=== PATIENT | female | born 1990 | race Caucasian/White ===

== ENCOUNTER 2019-09-06 16:48 | Emergency (ER) | payer OTHER, SELFPAY ==
[2019-09-06 16:56] VITALS: BP 130/77; PULSE 89; RESP 20; TEMP 37.7; O2SAT 98
--- NOTE | 2019-09-06 17:02 | ED.GENADULT ---
HPI - General Adult General Chief complaint: Eye Problems Stated complaint: Possible Cut Right eye Time Seen by Provider: 09/06/19 17:06 Source: patient and RN notes reviewed Mode of arrival: ambulatory Limitations: no limitations History of Present Illness HPI narrative: This patient's puppy accidentally scratched her in the eye with its paw about 30 minutes prior to coming to the clinic this afternoon. Patient does not wear contact lenses or glasses. She has had tearing from the eye but no purulent drainage. There is been no bleeding. She has no underlying history of eye disease. She has not had any ear pain, no nasal drainage, no sore throat. She had no injury to her left eye. She has had no nausea, no vomiting, no diarrhea. She has had no hematuria, no dysuria, no pyuria. She had no rashes. Related Data Home Medications Medication Instructions Recorded Confirmed etonogestrel [Nexplanon] 1 implant SUBDERMAL ONCE 09/06/19 09/06/19 Allergies Allergy/AdvReac Type Severity Reaction Status Date / Time latex Allergy Unknown Hives Verified 09/06/19 17:08 ATOMOXETINE HCL Allergy Unknown Other Uncoded 09/06/19 17:08 Review of Systems Review of Systems: Narrative: CONSTITUTIONAL: Denies fever, chills, or sweats. Noncontributory except as pertains to the past medical history and history of present illness. EYES: Denies visual changes, redness, or discharge. ENT: Denies rhinorrhea, congestion, sore throat, or otalgia. CARDIOVASCULAR: Denies chest pain, palpitations, or edema. RESPIRATORY: Denies cough or dyspnea. GASTROINTESTINAL: Denies abdominal pain, nausea, vomiting, or diarrhea. GENITOURINARY: Denies dysuria or hematuria. SKIN: Denies rash or itching. MUSCULOSKELETAL: Denies back pain, joint pain, or myalgia. NEUROLOGIC: Denies headache, numbness, or weakness. PSYCHIATRIC: Denies anxiety or depression. [facility] Social History Social History Smoking status: Never smoker Alcohol intake: never Substance use: never Gender identity (if verbalized by the patient): Female Comments At time of signature, I have reviewed and agree with nursing past medical, surgical, social, and family history.Please see nursing chart for further information. There is no relevant family history pertinent to the presenting complaint. Exam Narrative: Exam Narrative: GENERAL: Well-appearing, well-nourished, and in no acute distress. HEAD: Normocephalic, atraumatic. EYES: PERRLA and EOMI.The fundi are within normal limits bilaterally. Exam chart could not be read with the right eye due to the fact that she was in pain and could not keep the eye open to read the chart. The left eye visual acuity was 20/50 left eye without any form of corrective eye lenses. After explaining the procedure to the patient 2 drops of tetracaine were instilled in the patient's right eye with relief of the pain. Then magnifying lens exam with eversion of the eyelids revealed no evidence of any foreign bodies. Fluorescein staining did show a corneal abrasion pinpoint at the 10 o'clock position of the periphery of the cornea of the right cornea. There were no other lesions seen. The eyelids appear normal. There is no bruising. No swelling. There is no evidence of any erythema or cellulitis of the eyelids. No orbital or periorbital cellulitis no styes. The left eye and eyelids are normal by comparison. EARS: TM's clear bilaterally and the canals are clear. NOSE: Nares clear, no rhinorrhea or epistaxis. THROAT:Mucous membranes moist.Oropharynx normal without erythema or exudates. NECK: Supple. No adenopathy of the neck, supraclavicular, axillary, or inguinal areas peer RESPIRATORY: No respiratory distress. Airway patent. Respirations non-labored. Clear to auscultation. There are no wheezes, no rales, no retractions, no use accessory muscle respirations. Patient's not cyanotic and not dyspneic. Her pulse ox on ro
== END 2019-09-06 17:20 | disposition home or self-care (01) ==
PROVIDERS: Emergency Provider Family Medicine
DX: S05.01XA Injury of conjunctiva and corneal abrasion without foreign body, right eye, initial encounter (principal); W54.1XXA Struck by dog, initial encounter
CPT/HCPCS: 99213; A9270; G0463

== ENCOUNTER 2019-11-02 12:49 | Emergency (ER) | payer OTHER, SELFPAY ==
--- NOTE | 2019-11-02 12:57 | ED.FEMALEGU ---
HPI - Female Genitourinary General Chief complaint: Urogenital-Female Stated complaint: Possible Kidney Stone Time Seen by Provider: 11/02/19 13:12 Source: patient and RN notes reviewed Mode of arrival: ambulatory Limitations: no limitations History of Present Illness HPI Narrative: 29-year-old female presents with concern for dysuria, flank pain, urine hesitancy. Reports symptoms started approximately 2 days ago, worsened last night. She denies fever, malaise, nausea, vomiting, hematuria. Reports she is on Nexplanon and has no menstrual period. Reports flank pain worsens with urination MD elicited complaint: dysuria and flank pain Related Data Home Medications Medication Instructions Recorded Confirmed etonogestrel [Nexplanon] 1 implant SUBDERMAL ONCE 09/06/19 11/02/19 phenytoin sodium extended 100 mg PO TID 11/02/19 11/02/19 [Dilantin Extended] Allergies Allergy/AdvReac Type Severity Reaction Status Date / Time latex Allergy Unknown Hives Verified 11/02/19 12:58 atomoxetine [From Strattera] Allergy Unknown Verified 11/02/19 13:08 ATOMOXETINE HCL Allergy Unknown Other Uncoded 11/02/19 12:58 Review of Systems Review of Systems: Narrative: CONSTITUTIONAL: Denies malaise, chills, sweats, or fever. CARDIOVASCULAR: Denies edema. RESPIRATORY: Denies dyspnea. GASTROINTESTINAL: Denies abdominal pain, nausea, vomiting, diarrhea, bloody, or mucous stools. GENITOURINARY: Reports dysuria, flank pain, hesitancy. Denies frequency, urgency, hematuria. Denies abnormal vaginal discharge, bleeding. Denies unprotected sex MUSCULOSKELETAL: Denies myalgia. All systems reviewed & are unremarkable except as noted in HPI and below PMFSH Social History Social History Smoking status: Never smoker Alcohol intake: never Substance use: never Gender identity (if verbalized by the patient): Female Comments At time of signature, agree with nursing past medical, surgical, social and family history. There is no relevant family history pertinent to the presenting complaint Exam Narrative: Exam Narrative: GENERAL: Well-appearing, well-nourished, and in no acute distress. HEAD: Normocephalic. EYES: PERRLA, conjunctivae clear. NECK: Supple. No lymphadenopathy CHEST: Clear to auscultation. No respiratory distress. HEART: Regular rate and rhythm. No murmur heard. Normal peripheral pulses. ABDOMEN: Soft, nontender upon palpation, nondistended, normal active bowel sounds, no palpable or pulsatile masses, no guarding. Right CVA tenderness SKIN: Warm, dry, no rash. NEURO: Alert and oriented x3. PSYCH: Normal mood and affect Course Course Emergency Course: Patient is aware of diagnosis, understands and agrees to treatment plan. Anticipatory guidance given. Patient agrees to follow-up as directed and is aware of reasons to seek care at the emergency department. Portions of this record may have been created with voice recognition software Vital Signs Vital signs: Vital Signs Temperature 98.7 F 11/02/19 13:04 Pulse Rate 80 11/02/19 13:04 Respiratory Rate 16 11/02/19 13:04 Blood Pressure 126/72 11/02/19 13:04 Pulse Oximetry 100 11/02/19 13:04 Temperature 98.7 F 11/02/19 13:04 Pulse Rate 80 11/02/19 13:04 Respiratory Rate 16 11/02/19 13:04 Blood Pressure 126/72 11/02/19 13:04 Pulse Oximetry 100 11/02/19 13:04 Reviewed. MDM - Female Genitourinary MDM Narrative Medical decision making narrative: Exam findings and UA show no acute concerns or changes; patient is non-toxic appearing and is in no distress. Patient is appropriate for outpatient treatment and follow-up. Differential Diagnosis Differential diagnosis: Likely urinary tract infection, cystitis and other (Nephrolithiasis, pyelonephritis) Lab Data Labs: Urine Glucose Negative Reference Range: Negative Urine Bilirubin Negative Reference R
[2019-11-02 13:04] VITALS: BP 126/72; PULSE 80; RESP 16; TEMP 37.1; O2SAT 100
== END 2019-11-02 13:15 | disposition home or self-care (01) ==
PROVIDERS: Emergency Provider Nurse Practitioner
DX: R30.0 Dysuria (principal); R39.11 Hesitancy of micturition; R10.9 Unspecified abdominal pain; G40.909 Epilepsy, unspecified, not intractable, without status epilepticus
CPT/HCPCS: 81003; 87086; 99213; G0463

== ENCOUNTER 2020-01-10 11:51 | Emergency (ER) | payer OTHER, SELFPAY ==
--- NOTE | ~2020-01-10 | XR_ITS ---
XR hand LT min 3V DATE: 01/10/2020 12:46 INDICATION: Left thumb pain after a fall yesterday, bending back TECHNIQUE: 3 views COMPARISON: None FINDINGS: No fracture or dislocation, periosteal reaction or bone destruction. IMPRESSION: Negative Reviewed, dictated and finalized at location A. IMPRESSION: Negative
[2020-01-10 12:16] VITALS: BP 114/89; PULSE 86; RESP 20; TEMP 37.1; O2SAT 100
--- NOTE | 2020-01-10 12:58 | ED.GENADULT ---
HPI - General Adult General Chief complaint: Extremity Injury, Upper Stated complaint: left thumb fracture Time Seen by Provider: 01/10/20 12:58 Source: patient and RN notes reviewed Mode of arrival: ambulatory Limitations: no limitations History of Present Illness HPI narrative: 29-year-old female presents with complaints of LT 1st finger (thumb) and hand pain and swelling for 1 day. Aleve with little relief. Irina says she was getting out of her car last night at approximately 22:00 when she fell and extended her hand causing injury to LT thumb, bent backwards. Denies numbness or tingling. No weakness of finger(s). Denies immobility. Exacerbation is movement and palpation of finger. Relieving factor is rest. Dominant hand is RIGHT HAND. Denies break in skin or drainage. LMP, unknown due to Nexplanon in place. The patient reports she have not been diagnosed with COVID-19. The patient reports she is not waiting for the results of a COVID-19 lab test. The patient reports she do not have fever, chills, weakness, fatigue, myalgia, or facial swelling. The patient reports she do not have a new or worsening cough or shortness of breath. Denies chest pain. The patient reports she do not have any rhinorrhea, congestion, sore throat, nausea, vomiting, abdominal pain, and diarrhea. Tolerating po intake well. Denies recent traveling. Denies concerns for COVID-19 or exposures been home since [id number] order except for essential household needs, working, and return home. At this time, patient is not suspected of having COVID-19. Some parts of this dictation were generated by voice recognition software and may contain typographical and/or grammatical inaccuracies. Related Data Home Medications Medication Instructions Recorded Confirmed etonogestrel [Nexplanon] 1 implant SUBDERMAL ONCE 09/06/19 01/10/20 phenytoin sodium extended 100 mg PO TID 11/02/19 01/10/20 [Dilantin Extended] Allergies Allergy/AdvReac Type Severity Reaction Status Date / Time latex Allergy Unknown Hives Verified 11/02/19 12:58 atomoxetine [From Strattera] Allergy Unknown Verified 11/02/19 13:08 ATOMOXETINE HCL Allergy Unknown Other Uncoded 11/02/19 12:58 Review of Systems Review of Systems: Narrative: CONSTITUTIONAL: Denies fever, chills, sweats. EYES: Denies visual changes, redness, discharge. ENT: Denies rhinorrhea, congestion, sore throat, otalgia. CARDIOVASCULAR: Denies chest pain, palpitations, edema. RESPIRATORY: Denies dyspnea, wheezing, cough. GASTROINTESTINAL: Denies abdominal pain, nausea, vomiting, diarrhea. GENITOURINARY: Denies dysuria, hematuria, abnormal discharge. SKIN: Denies rash or itching. MUSCULOSKELETAL: Denies acute back pain or myalgia. Complains of LT 1st (thumb) finger and hand with swelling and tenderness. NEUROLOGIC: Denies numbness or focal weakness. PSYCHIATRIC: Denies anxiety or depression. All systems reviewed & are unremarkable except as noted in HPI and below. [facility] Past Medical History Medical History Crohn's disease Depression Epilepsy Migraine Surgical History Surgical History History of strabismus surgery Hx of cholecystectomy Myringotomy tube(s) status Family History Family History (Updated 01/10/20 @ 13:07 by BRENDA Head) Father Unknown family medical history Mother Alive and well Grandparent Diabetes mellitus Grandparent Cancer Social History Social History Smoking status: Never smoker Tobacco type: cigarettes Second hand tobacco smoke exposure: No Alcohol intake: never Substance use: never Gender identity (if verbalized by the patient): Female Comments At time of signature, agree with nurse past medical, surgical, social, and family history. There is no relevant family h
== END 2020-01-10 13:13 | disposition home or self-care (01) ==
PROVIDERS: Emergency Provider Nurse Practitioner Family; PCP Family Medicine Sports Medicine
DX: S63.602A Unspecified sprain of left thumb, initial encounter (principal); K50.90 Crohn's disease, unspecified, without complications; G40.909 Epilepsy, unspecified, not intractable, without status epilepticus; X58.XXXA Exposure to other specified factors, initial encounter
CPT/HCPCS: 73130; 99213; G0463

== ENCOUNTER 2020-01-13 21:22 | Emergency (ER) | payer OTHER, SELFPAY ==
[2020-01-13 21:27] VITALS: BP 120/81; PULSE 82; RESP 18; TEMP 37.6; O2SAT 100
--- NOTE | 2020-01-13 21:38 | ED.SKABFB ---
HPI - Skin/Abscess/Foreign Bdy General Chief complaint: Skin/Abscess/Foreign Body Stated complaint: cellulitis on BLE. Time Seen by Provider: 01/13/20 21:29 History of Present Illness HPI narrative: Patient presents with her partner for ongoing foot rash. She has been seen several times for this at different places. She has been given triamcinolone at 2 different places. She has not seen a peer educator. She has [place] Medicaid and a primary care physician in [facility]. She says the pain is 10 out of 10. She changed her shoes to crocs because she thought it was her previous shoe that was causing the problem. She has diabetes and her last hemoglobin A1c was 7. The highest her sugar gets is 250. 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 complaint: rash Onset (ago): month(s) Location: L foot and R foot Severity: similar to previous episodes Quality: burning Pain Consistency: constant Relieving factors: none Exacerbating factors: none Related Data Home Medications Medication Instructions Recorded Confirmed etonogestrel [Nexplanon] 1 implant SUBDERMAL ONCE 09/06/19 01/10/20 phenytoin sodium extended 100 mg PO TID 11/02/19 01/10/20 [Dilantin Extended] Allergies Allergy/AdvReac Type Severity Reaction Status Date / Time latex Allergy Unknown Hives Verified 11/02/19 12:58 atomoxetine [From Strattera] Allergy Unknown Verified 11/02/19 13:08 ATOMOXETINE HCL Allergy Unknown Other Uncoded 11/02/19 12:58 Review of Systems Review of Systems: Narrative: CONSTITUTIONAL: Denies fever, chills, or sweats. EYES: Denies visual changes, redness, or discharge. ENT: Denies rhinorrhea, congestion, sore throat, or otalgia. CARDIOVASCULAR: Denies chest pain, palpitations, or edema. RESPIRATORY: Denies cough or dyspnea. GASTROINTESTINAL: Denies abdominal pain, nausea, vomiting, or diarrhea. GENITOURINARY: Denies dysuria or hematuria. SKIN: She has rash and burning on her feet , in the distribution of the sandals she has with her . MUSCULOSKELETAL: Denies back pain, joint pain, or myalgia. NEUROLOGIC: Denies headache, numbness, or weakness. PSYCHIATRIC: Denies anxiety or depression. [facility] Past Medical History Medical History Crohn's disease Depression Epilepsy Migraine Surgical History Surgical History History of strabismus surgery Hx of cholecystectomy Myringotomy tube(s) status Family History Family History (Updated 01/10/20 @ 13:07 by BRENDA Head) Father Unknown family medical history Mother Alive and well Grandparent Diabetes mellitus Grandparent Cancer Social History Social History Smoking status: Never smoker Tobacco type: cigarettes Second hand tobacco smoke exposure: No Alcohol intake: never Substance use: never Gender identity (if verbalized by the patient): Female Exam Narrative: Exam Narrative: GENERAL: Well-appearing, well-nourished, and in no acute distress. Morbid obesity HEAD: Normocephalic, atraumatic. EYES: PERRLA and EOMI. ENT: Nares clear, no rhinorrhea or epistaxis. Mucous membranes moist. NECK: Supple. CHEST: Clear to auscultation. No respiratory distress. HEART: Regular rate and rhythm. No murmur heard. Normal peripheral pulses. ABDOMEN: Soft, nontender, nondistended, normal active bowel sounds. EXTREMITIES: Normal range of motion. No edema. SKIN: Warm, dry, red macule rash in the distribution of the sandals that she has with on both feet. NEURO: No focal deficits. Alert and oriented x3. PSYCH: Normal mood and affect. Course Vital Signs Vital signs: Vital Signs Temperature 99.6 F 01/13/20 21:27 Pulse Rate 82 01/13/20 21:27 Respiratory Rate 18 01/13/20 21:27 Blood Pressure 120/81 01/13/20 21:27 Pulse Oximetry 100 01/13/20 21:27 Temperature 99.6 F 01/13/20 21
[2020-01-13 22:10] VITALS: BP 137/89; PULSE 80; RESP 17; O2SAT 100
[2020-01-13] MEDS: KETOROLAC (*BKC) 60 MG/2 ML VIAL IM (22:21)
== END 2020-01-13 22:10 | disposition home or self-care (01) ==
PROVIDERS: Emergency Provider Emergency Medicine; PCP Family Medicine Sports Medicine
DX: L25.9 Unspecified contact dermatitis, unspecified cause (principal); K50.90 Crohn's disease, unspecified, without complications; G40.909 Epilepsy, unspecified, not intractable, without status epilepticus; F17.210 Nicotine dependence, cigarettes, uncomplicated
CPT/HCPCS: 96372; 99283; J1885

== ENCOUNTER 2020-03-25 11:16 | Emergency (ER) | payer OTHER, SELFPAY ==
--- NOTE | 2020-03-25 11:37 | ED.GENADULT ---
HPI - General Adult General Chief complaint: Wound/Laceration Stated complaint: Insect Bite Time Seen by Provider: 03/25/20 11:37 Source: patient Mode of arrival: ambulatory Limitations: no limitations History of Present Illness HPI narrative: 21-year-old female patient presents to the [facility] with complaints of what she thinks might be a spider bite to her right lower leg. Patient states she thinks she was bitten about 3 days ago. Patient states that she noticed that the redness starting to increase and is noticed some drainage coming from the site as well. Patient denies any fevers but states she has had a little bit of body aches at times. Denies any nausea, vomiting or diarrhea. Patient states she has been putting Neosporin with a Band-Aid onto the site denies any ice or heat to the area. Related Data Home Medications Medication Instructions Recorded Confirmed etonogestrel [Nexplanon] 1 implant SUBDERMAL ONCE 09/06/19 01/10/20 Allergies Allergy/AdvReac Type Severity Reaction Status Date / Time latex Allergy Unknown Hives Verified 11/02/19 12:58 atomoxetine [From Strattera] Allergy Unknown Verified 11/02/19 13:08 Review of Systems Review of Systems: Narrative: CONSTITUTIONAL: Denies fever, chills, or sweats. EYES: Denies visual changes, redness, or discharge. ENT: Denies rhinorrhea, congestion, sore throat, or otalgia. CARDIOVASCULAR: Denies chest pain, palpitations, or edema. RESPIRATORY: Denies cough or dyspnea. GASTROINTESTINAL: Denies abdominal pain, nausea, vomiting, or diarrhea. GENITOURINARY: Denies dysuria or hematuria. SKIN: Denies rash or itching. Positive bite to right lower leg x3 days MUSCULOSKELETAL: Denies back pain, joint pain, or myalgia. NEUROLOGIC: Denies headache, numbness, or weakness. PSYCHIATRIC: Denies anxiety or depression. [facility] Past Medical History Medical History Crohn's disease Depression Epilepsy Migraine Surgical History Surgical History History of strabismus surgery Hx of cholecystectomy Myringotomy tube(s) status Family History Family History Father Unknown family medical history Mother Alive and well Grandparent Diabetes mellitus Grandparent Cancer Social History Social History Smoking status: Never smoker Tobacco type: cigarettes Second hand tobacco smoke exposure: No Alcohol intake: never Substance use: never Gender identity (if verbalized by the patient): Female Comments At the time of my signature I agree with nursing past medical history, surgical, social, and family history. There is no relevant family history pertinent to the presenting complaint. Exam Narrative: Exam Narrative: GENERAL: Well-appearing, well-nourished, and in no acute distress. HEAD: Normocephalic, atraumatic. EYES: PERRLA and EOMI. ENT: Nares clear, no rhinorrhea or epistaxis. Mucous membranes moist. NECK: Supple. No lymphadenopathy CHEST: Clear to auscultation. No respiratory distress. HEART: Regular rate and rhythm. No murmur heard. Normal peripheral pulses. ABDOMEN: Soft, nontender, nondistended, normal active bowel sounds. EXTREMITIES: Normal range of motion. No edema. SKIN: Warm, dry, no rash. Patient has small erythemic area with no warmth noted to the anterior right lower leg measuring approximately 3 cm x 1-1/2. There is a punctate kong noted to the middle of the erythema. There is no active drainage at this time. There is no obvious significant swelling noted to the lower extremity or the foot. Patient does complain of tenderness on palpation to the area. NEURO: No focal deficits. Alert and oriented x3. Course Vital Signs Vital signs: Vital Signs Temperature 37.0 C 03/25/20 11:39 Pulse Rate 78 03/25/20 11:39 Resp
[2020-03-25 11:39] VITALS: BP 119/77; PULSE 78; RESP 16; TEMP 37; O2SAT 100
== END 2020-03-25 12:03 | disposition home or self-care (01) ==
PROVIDERS: Emergency Provider Nurse Practitioner Family; PCP Family Medicine Sports Medicine
DX: L03.115 Cellulitis of right lower limb (principal); S80.861A Insect bite (nonvenomous), right lower leg, initial encounter; W57.XXXA Bitten or stung by nonvenomous insect and other nonvenomous arthropods, initial encounter; K50.90 Crohn's disease, unspecified, without complications
CPT/HCPCS: 99213; G0463

== ENCOUNTER 2020-06-18 20:20 | Emergency (ER) | payer OTHER, SELFPAY ==
--- NOTE | ~2020-06-18 | XR_ITS ---
XR chest 1V portable DATE: 06/18/2020 22:51 INDICATION: Shortness of breath, cough for 2 days. Medial chest pain. Nausea, vomiting, diarrhea. TECHNIQUE: Portable upright AP chest on 06/18/2020 at 2250 hours COMPARISON: 06/22/2018 portable AP chest FINDINGS: Normal heart size. No hilar or mediastinal enlargement. No pulmonary infiltrate or consolid ation, pleural effusion or pulmonary vascular congestion or pneumothorax. IMPRESSION: No active cardiopulmonary disease Reviewed, dictated and finalized at location A.
--- NOTE | 2020-06-18 20:44 | ECG_ITS ---
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
[2020-06-18 20:45] VITALS: BP 143/71; PULSE 86; RESP 22; TEMP 37.4; O2SAT 101
[2020-06-18 21:12] LABS: Basophils Percent Auto 0.4 % (0.2-1.2); Eosinophils Absolute Auto 0.2 K/mm3 (0-0.3); Eosinophils Percent Auto 1.6 % (0-4.4); Hematocrit 43.5 % (37.0-47.0); Hemoglobin 14.5 g/dL (12.0-15.0); Immature Granulocyte Absolute 0.04 K/mm3 (0.00-0.031); Immature Granulocyte Percent A 0.4 % (0-0.5); Lymphocytes Absolute Auto 1.88 K/mm3 (0.9-3.2); Lymphocytes Percent Auto 18.7 % (18.3-44.2); Mean Corpuscular HGB Conc 33.3 g/dl (32-36); Mean Corpuscular Hemoglobin 29.5 pg (26-34); Mean Corpuscular Volume 88.6 fl (80-100); Mean Platelet Volume 10.3 fl (7.4-10.4); Monocytes Absolute Auto 0.5 K/mm3 (0.1-0.6); Monocytes Percent Auto 4.8 % (2.6-8.5); Neutrophils Absolute Auto 7.4 K/mm3 (1.3-6.7); Neutrophils Percent Auto 74.1 % (45.5-73.1); Platelet Count Result 389 k/mm3 (150-375); Red Blood Count 4.91 M/mm3 (4.2-5.4); Red Cell Distribution Width 13.2 % (11.5-14.5)
[2020-06-18 21:24] LABS: Anion Gap 9 mmol/L (8-16); Blood Urea Nitrogen 10 mg/dL (7-17); Calcium 9.1 mg/dL (8.4-10.2); Carbon Dioxide 27 mmol/L (22-30); Chloride 105 mmol/L (98-107); Estimated CRCL calculation 166 ml/min; Estimated Glomerular Filt Rate > 60; Glucose 124 mg/dL (65-105); Potassium 3.5 mmol/L (3.4-5.0); Sodium 141 mmol/L (137-145)
[2020-06-18 21:36] LABS: Troponin I < 0.012 ng/mL (0.000-0.034)
[2020-06-18] MEDS: ASPIRIN 81 MG CHEWABLE TABLET 324 MG PO (22:42)
[2020-06-18 23:35] LABS: INR 1.1; Prothrombin Time 14.3 Seconds (11.1-14.7)
[2020-06-18 23:36] LABS: Partial Thromboplastin Time 26.9 SECONDS (22.3-36.8)
[2020-06-18 23:37] VITALS: BP 123/77; PULSE 79; RESP 21; O2SAT 100
[2020-06-18] MEDS: ONDANSETRON HCL ODT 4 MG TABLET PO (23:40)
--- NOTE | 2020-06-18 23:53 | ED.GENADULT ---
HPI - General Adult General Chief complaint: Upper Respiratory Infection Stated complaint: COVID symptoms Time Seen by Provider: 06/18/20 23:10 History of Present Illness HPI narrative: Patient is a 30-year-old female who presents ER with shortness of breath. Patient began feeling ill 3 days ago. 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 She received a swab but has not been told her results. She reports she has been having fevers at home and has cough. She has had increased shortness of breath over the last day should she want to come in for further evaluation. Reports she has mild chest tightness related to this. She is also experiencing nausea vomiting and diarrhea. No alleviating factors that she notes. Patient is an asthmatic and does not have albuterol. Related Data Home Medications Medication Instructions Recorded Confirmed etonogestrel [Nexplanon] 1 implant SUBDERMAL ONCE 09/06/19 01/10/20 dextroamphetamine-amphetamine 06/18/20 phenytoin sodium extended 100 mg PO TID 06/18/20 [Dilantin Extended] Allergies Allergy/AdvReac Type Severity Reaction Status Date / Time latex Allergy Unknown Hives Verified 06/18/20 20:49 atomoxetine [From Strattera] Allergy Unknown Verified 06/18/20 20:49 Review of Systems Review of Systems: All systems reviewed & are unremarkable except as noted in HPI and below Constitutional: Constitutional: Denies chills, Reports fever(s) and Reports weakness ENT: Denies nasal congestion and Denies sore throat Cardiovascular: Cardiovascular: Reports chest pain and Denies radiating jaw, neck or arm pain Respiratory: Respiratory: Reports cough, Reports dyspnea and Denies wheezing Gastrointestinal: Gastrointestinal: Denies abdominal pain, Reports diarrhea, Reports nausea and Reports vomiting PMFSH Past Medical History Medical History (Updated 06/18/20 @ 23:57 by Seymour Medina MD) Crohn's disease Depression Epilepsy Migraine Surgical History Surgical History History of strabismus surgery Hx of cholecystectomy Myringotomy tube(s) status Family History Family History Father Unknown family medical history Mother Alive and well Grandparent Diabetes mellitus Grandparent Cancer Social History Social History Smoking status: Never smoker Tobacco type: cigarettes Second hand tobacco smoke exposure: No Alcohol intake: never Substance use: never Gender identity (if verbalized by the patient): Female Exam Narrative: Exam Narrative: GENERAL: Well-appearing, well-nourished, and in no acute distress. HEAD: Normocephalic, atraumatic. CHEST: Clear to auscultation. No respiratory distress. HEART: Regular rate and rhythm. Normal peripheral pulses. ABDOMEN: Soft, nontender, nondistended. EXTREMITIES: Normal range of motion. No edema. NEURO: Alert and oriented x3. PSYCH: Normal mood and affect. Course Course Emergency Course: Patient informed of results. Will give antiemetics here for nausea. Patient is a tough stick has declined for fluid hydration. Discharge home with supportive care including anitemetics and albuterol. Vital Signs Vital signs: Vital Signs Temperature 99.3 F 06/18/20 20:45 Pulse Rate 86 06/18/20 20:45 Respiratory Rate 22 H 06/18/20 20:45 Blood Pressure 143/71 H 06/18/20 20:45 Pulse Oximetry 101 H 06/18/20 20:45 Temperature 99.3 F 06/18/20 20:45 Pulse Rate 79 06/18/20 23:37 Respiratory Rate 21 H 06/18/20 23:37 Blood Pressure 123/77 06/18/20 23:37 Pulse Oximetry 100 06/18/20 23:37 Medical Decision Making Vital Signs Vital Signs: Vital Signs Temperature 99.3 F 06/18/20 20:45 Pulse Rate 86 06/18/20 20:45 Respiratory Rate 22 H 06/18/20 20:45
[2020-06-19 00:08] VITALS: BP 128/77; PULSE 76; RESP 18; TEMP 36.7; O2SAT 100
[2020-06-19 00:24] LABS: Troponin I < 0.012 ng/mL (0.000-0.034)
== END 2020-06-19 00:09 | disposition home or self-care (01) ==
PROVIDERS: Emergency Provider Emergency Medicine; PCP Family Medicine Sports Medicine
DX: Z20.828 Contact with and (suspected) exposure to other viral communicable diseases (principal); B34.9 Viral infection, unspecified; K50.90 Crohn's disease, unspecified, without complications; F32.9 Major depressive disorder, single episode, unspecified; G40.909 Epilepsy, unspecified, not intractable, without status epilepticus
CPT/HCPCS: 36415; 71045; 80048; 84484; 85025; 85610; 85730; 93005; 99284; A9270

== ENCOUNTER 2020-08-31 12:47 | Emergency (ER) | payer OTHER, SELFPAY ==
--- NOTE | ~2020-08-31 | CT_ITS ---
EXAMINATION: CT abdomen pelvis w con EXAM DATE: 08/31/2020 14:08 INDICATION: Crohn's disease. Right lower quadrant pain. TECHNIQUE: Spiral CT of the abdomen and pelvis was performed following intravenous injection of 100 m L Omnipaque 350. Axial, coronal and sagittal images were reviewed. The dose-length product (DLP) fo r this examination was 1628.42 mGy-cm. The exposure was tailored according to patient size (auto mA exposure control), and iterative reconstruction (ASIR) was used as additional dose reduction techniqu e. Comparison is made to prior examination from 08/18/2018. FINDINGS: The liver, spleen, adrenal glands and pancreas are unremarkable. Gallbladder is unremarkab le. No biliary obstruction. Portal and splenic veins are patent. Kidneys enhance symmetrically. T here is no hydronephrosis. The uterus and ovaries are unremarkable, no adnexal mass. The bladder i s unremarkable. There is no retroperitoneal or pelvic lymphadenopathy. The appendix is normal. The stomach and small bowel are unremarkable. There is expected amount of c olonic stool. No free intraperitoneal gas. The heart is normal in size. There are no pericardial or pleural effusions. The lung bases are unremarkable. The bones are unremarkable. IMPRESSION: 1. No acute intra-abdominal findings. Normal appendix. Reviewed, dictated and finalized at location A. MACHINE OPERATOR
[2020-08-31 12:49] VITALS: BP 140/78; PULSE 77; RESP 18; TEMP 36.4; O2SAT 100
[2020-08-31 13:20] LABS: Basophils Percent Auto 0.6 % (0.2-1.2); Eosinophils Absolute Auto 0.1 K/mm3 (0-0.3); Hematocrit 41.3 % (37.0-47.0); Immature Granulocyte Absolute 0.05 K/mm3 (0.00-0.031); Immature Granulocyte Percent A 0.7 % (0-0.5); Immature Platelet Fraction Pct 8.9 % (0.9-11.2); Lymphocytes Absolute Auto 1.34 K/mm3 (0.9-3.2); Lymphocytes Percent Auto 18.8 % (18.3-44.2); Mean Corpuscular HGB Conc 33.9 g/dl (32-36); Mean Corpuscular Hemoglobin 29.4 pg (26-34); Mean Corpuscular Volume 86.6 fl (80-100); Mean Platelet Volume 11.8 fl (7.4-10.4); Monocytes Absolute Auto 0.4 K/mm3 (0.1-0.6); Monocytes Percent Auto 5.9 % (2.6-8.5); Neutrophils Absolute Auto 5.1 K/mm3 (1.3-6.7); Platelet Count Result 275 k/mm3 (150-375); Red Blood Count 4.77 M/mm3 (4.2-5.4); Red Cell Distribution Width 13.2 % (11.5-14.5); White Blood Count 7.1 K/mm3 (4.5-10.0)
[2020-08-31 13:28] LABS: Add Urine Microscopic? YES; Appearance Urine Clear (Clear); Bacteria Urine Trace /hpf; Bilirubin Urine Negative (Negative); Blood Urine Negative (Negative); Color Urine Yellow (Yellow); Glucose Urine UA Negative (Negative); Ketones Urine Negative (Negative); Leukocyte Esterase Ur Negative LEU/UL (Negative); Mucus Urine Rare /lpf; Nitrate Urine Negative (Negative); Protein Urine 1+ mg/dL (Negative); Specific Grav Ur 1.024 (1.001-1.035); Squamous Epithelial Cell Urine Few /hpf (Few); Urobilinogen Urine Negative mg/dL (<2.0); WBC Urine 0-3 /hpf
[2020-08-31] MEDS: METOCLOPRAMIDE HCL INJ 10 MG/2 ML VIAL IV PUSH (13:30)
[2020-08-31] MEDS: SODIUM CHLORIDE 0.9% IV 1,000 ML 999 ML IV CONT (13:30)
[2020-08-31] MEDS: LORazepam INJ (*CRX) 2 MG/ML VIAL 1 MG IV PUSH (13:31)
[2020-08-31] MEDS: diphenhydrAMINE HCl INJ 50 MG/ML VIAL 25 MG IV PUSH (13:31)
[2020-08-31] MEDS: FAMOTIDINE 20 MG/2 ML VIAL IV PUSH (13:31)
[2020-08-31 13:33] LABS: Alanine Aminotransferase 15 U/L (4-35); Alkaline Phosphatase 70 U/L (38-126); Anion Gap 7 mmol/L (8-16); Aspartate Amino Transferase 24 U/L (14-36); Bilirubin,Total 0.7 mg/dL (0.2-1.3); Blood Urea Nitrogen 10 mg/dL (7-17); Calcium 8.8 mg/dL (8.4-10.2); Carbon Dioxide 23 mmol/L (22-30); Chloride 107 mmol/L (98-107); Estimated CRCL calculation 169 ml/min; Estimated Glomerular Filt Rate > 60; Glucose 108 mg/dL (65-105); Lipase 126 U/L (23-300); Potassium 4.6 mmol/L (3.4-5.0); Sodium 137 mmol/L (137-145)
[2020-08-31 14:01] VITALS: TEMP 36.4
[2020-08-31 14:47] VITALS: BP 104/79; PULSE 77; RESP 18; O2SAT 98
--- NOTE | 2020-08-31 15:45 | ED.ABDPAIN ---
HPI - Abdominal Pain General Chief Complaint: Abdominal Pain Stated Complaint: abd pain Time Seen by Provider: 08/31/20 12:53 Source: patient Mode of arrival: ambulatory Limitations: no limitations History of Present Illness HPI narrative: Patient is a 30-year-old female who presents with several days duration of abdominal pain and discomfort with some loose stools with red blood in her stool patient has not been seen for this complaint has not seen any specialists or primary care providers in the recent past does not take anything for her symptoms notes history of Crohn's patient notes nausea and vomiting over the last several days as well. Patient denies any URI symptoms or sick contacts. On arrival patient appears uncomfortable but not in distress Related Data Home Medications Medication Instructions Recorded Confirmed etonogestrel [Nexplanon] 1 implant SUBDERMAL ONCE 09/06/19 01/10/20 dextroamphetamine-amphetamine 06/18/20 phenytoin sodium extended 100 mg PO TID 06/18/20 [Dilantin Extended] Allergies Allergy/AdvReac Type Severity Reaction Status Date / Time latex Allergy Unknown Hives Verified 08/31/20 12:55 atomoxetine [From Strattera] Allergy Unknown Verified 08/31/20 12:55 Review of Systems Review of Systems: All systems reviewed & are unremarkable except as noted in HPI and below PMFSH Past Medical History Medical History (Updated 08/31/20 @ 15:49 by Gualberto Limon PA-C) Crohn's disease Depression Epilepsy Migraine Surgical History Surgical History History of strabismus surgery Hx of cholecystectomy Myringotomy tube(s) status Family History Family History Father Unknown family medical history Mother Alive and well Grandparent Diabetes mellitus Grandparent Cancer Social History Social History Smoking status: Never smoker Tobacco type: cigarettes Second hand tobacco smoke exposure: No Alcohol intake: never Substance use: never Gender identity (if verbalized by the patient): Female Sexual Orientation (if Verbalized by the Patient): Lesbian, James, or Homosexual Exam Narrative: Exam Narrative: GENERAL: Well-appearing, obese, and in no acute distress. HEAD: Normocephalic, atraumatic. EYES: PERRLA and EOMI. ENT: Nares clear, no rhinorrhea or epistaxis. Mucous membranes moist. CHEST: Clear to auscultation. No respiratory distress. No wheezes rales or rhonchi HEART: Regular rate and rhythm. No murmur heard. Normal peripheral pulses. ABDOMEN: Soft, generalized tenderness, nondistended, normal active bowel sounds. EXTREMITIES: Normal range of motion. No edema. SKIN: Warm, dry, no rash. NEURO: No focal deficits. Alert and oriented x3. Cranial nerves II through XII grossly intact PSYCH: Normal mood and affect. Course Course Emergency Course: Patient evaluated for symptoms no high risk changes in the blood work or imaging will be discharged home with medications treated symptomatically advised to follow with primary care given reasons to return vital signs and ABCs intact and stable Vital Signs Vital signs: Vital Signs Temperature 97.6 F 08/31/20 12:49 Pulse Rate 77 08/31/20 12:49 Respiratory Rate 18 08/31/20 12:49 Blood Pressure 140/78 08/31/20 12:49 Pulse Oximetry 100 08/31/20 12:49 Temperature 97.6 F 08/31/20 14:01 Pulse Rate 77 08/31/20 14:47 Respiratory Rate 18 08/31/20 14:47 Blood Pressure 104/79 08/31/20 14:47 Pulse Oximetry 98 08/31/20 14:47 MDM - Abdominal Pain MDM Narrative Medical decision making narrative: Patient with potential for Crohn's flare however no high risk changes in the blood work or imaging will be discharged home with medications treated symptomatically felt appropriate for outpatient reevaluation patient agreeing with
[2020-08-31 16:18] VITALS: BP 110/80; PULSE 71; RESP 18; O2SAT 98
== END 2020-08-31 16:23 | disposition home or self-care (01) ==
PROVIDERS: Emergency Medicine Emergency Medical Services; Emergency Provider Emergency Medicine; Family Provider Family Medicine Sports Medicine; PCP Family Medicine Sports Medicine
DX: R10.9 Unspecified abdominal pain (principal); K50.90 Crohn's disease, unspecified, without complications; G40.909 Epilepsy, unspecified, not intractable, without status epilepticus; F32.9 Major depressive disorder, single episode, unspecified
CPT/HCPCS: 36415; 74177; 80053; 81001; 81025; 83690; 85025; 85055; 86850; 86900; 86901; 96374; 96375; 99284; J0131; J1200; J2060; J2765; J7030; Q9967

== ENCOUNTER 2021-03-20 19:32 | Emergency (ER) | payer OTHER, SELFPAY ==
[2021-03-20 19:41] VITALS: BP 114/74; PULSE 85; RESP 18; TEMP 36.1; O2SAT 100
--- NOTE | 2021-03-20 19:45 | ED.SKABFB ---
HPI - Skin/Abscess/Foreign Bdy General Chief complaint: Skin/Abscess/Foreign Body Stated complaint: rash/itchy Time Seen by Provider: 03/20/21 19:48 Source: patient Mode of arrival: ambulatory Limitations: no limitations History of Present Illness HPI narrative: 30-year-old female presents to the [facility] with complaints of a rash and my insides feel like they are burning. Patient started Wellbutrin 4 to 5 days ago and states every day she is taken it she has had some itching but today was the first day she had the rash and burning sensation. Denies chest pain. No abdominal pain. No nausea vomiting or diarrhea. Denies suicidal/ homicidal feelings Related Data Home Medications Medication Instructions Recorded Confirmed etonogestrel [Nexplanon] 1 implant SUBDERMAL ONCE 09/06/19 01/10/20 dextroamphetamine-amphetamine 06/18/20 phenytoin sodium extended 100 mg PO TID 06/18/20 [Dilantin Extended] Allergies Allergy/AdvReac Type Severity Reaction Status Date / Time latex Allergy Unknown Hives Verified 03/20/21 19:41 atomoxetine [From Strattera] Allergy Unknown Verified 03/20/21 19:41 bupropion [From Wellbutrin] Allergy Difficulty Verified 03/20/21 19:57 Breathing Review of Systems Review of Systems: All systems reviewed & are unremarkable except as noted in HPI and below Constitutional: Constitutional: Reports no additional constitutional complaints, Denies chills and Denies fever(s) Eyes: Eyes: Reports no additional eye complaints and Denies change in vision ENT: Reports system reviewed and no additional complaints, except as documented, Denies epistaxis and Denies sore throat Cardiovascular: Cardiovascular: Reports no additional cardiovascular complaints Respiratory: Respiratory: Reports no additional respiratory complaints Gastrointestinal: Gastrointestinal: Reports no additional gastrointestinal complaints, Denies abdominal pain, Denies nausea and Denies vomiting Musculoskeletal: Musculoskeletal: Reports no additional musculoskeletal complaints Integumentary/Breasts: Skin/Breast: Reports as per HPI, Reports pruritus, Denies erythema and Reports rash Neurologic: Reports system reviewed and no additional complaints, except as documented Psychiatric: Psychiatric: Reports as per HPI Allergic/Immunologic: Allergic/Immunologic: Reports no additional allergic/immunologic complaints PMFSH Past Medical History Medical History Crohn's disease Depression Epilepsy Migraine Surgical History Surgical History History of strabismus surgery Hx of cholecystectomy Myringotomy tube(s) status Family History Family History Father Unknown family medical history Mother Alive and well Grandparent Diabetes mellitus Grandparent Cancer Social History Social History Smoking status: Never smoker Tobacco type: cigarettes Second hand tobacco smoke exposure: No Alcohol intake: never Substance use: never Gender identity (if verbalized by the patient): Female Comments At the time of my signature, I reviewed and agree with the nursing past medical, surgical, social, and family history. There is no relevant family history pertinent to the patient complaint. Exam Const: General: healthy appearing, no acute distress and alert Nutritional Appearance: well nourished and obese Orientation/consciousness: patient oriented x3 Limitations: no limitations HENMT: Head: normal to inspection Ears: external ears normal, TM's normal bilaterally and EAC's normal Eyes: Conjunctivae: conjunctivae normal Pupils: Equal, round and reactive pupils present EOM: EOMs intact bilaterally Direct Ophthalmoscopy: no photophobia Neck: Neck: normal visual inspection, no lymphadenopathy and no meningeal signs Ch
[2021-03-20] MEDS: predniSONE 20 MG TABLET 40 MG PO (19:54)
[2021-03-20] MEDS: FAMOTIDINE 20 MG TABLET PO (19:54)
[2021-03-20 20:11] VITALS: BP 114/74; PULSE 85; RESP 18; TEMP 36.1; O2SAT 100
== END 2021-03-20 20:02 | disposition home or self-care (01) ==
PROVIDERS: Emergency Provider Nurse Practitioner
DX: L50.0 Allergic urticaria (principal); K50.90 Crohn's disease, unspecified, without complications; F32.9 Major depressive disorder, single episode, unspecified
CPT/HCPCS: 99213; A9270; G0463; J7512

== ENCOUNTER 2021-05-10 10:48 | Emergency (ER) | payer OTHER, SELFPAY ==
[2021-05-10 10:56] VITALS: BP 104/83; PULSE 78; RESP 16; TEMP 36.7; O2SAT 99
--- NOTE | 2021-05-10 11:27 | ED.EAR ---
HPI - Ear Problem General Chief complaint: Ear Stated complaint: Ear Pain Time Seen by Provider: 05/10/21 11:20 Source: patient and RN notes reviewed Mode of arrival: ambulatory Limitations: no limitations History of Present Illness HPI Narrative: 31 year old female who presents to [facility] care with complaints of 2 day history of left ear pain. Patient states that she has had some brownish yellow drainage from her ear and states popping sensation to her left ear. Patient reports that she took some ibuprofen today at 0900 for her discomfort. Patient denies any sore throat, cough, headache or any sinus congestion, reports some nasal drainage today. Patient denies any fevers, chill or sweats or any body aches, MD Complaint: ear pain Location: left ear Related Data Home Medications Medication Instructions Recorded Confirmed etonogestrel [Nexplanon] 1 implant SUBDERMAL ONCE 09/06/19 01/10/20 dextroamphetamine-amphetamine 06/18/20 phenytoin sodium extended 100 mg PO TID 06/18/20 [Dilantin Extended] Allergies Allergy/AdvReac Type Severity Reaction Status Date / Time latex Allergy Unknown Hives Verified 05/10/21 11:00 atomoxetine [From Strattera] Allergy Unknown Verified 05/10/21 11:00 bupropion [From Wellbutrin] Allergy Difficulty Verified 05/10/21 11:00 Breathing Review of Systems Review of Systems: CONSTITUTIONAL: Denies fever, chills, or sweats. EYES: Denies visual changes, redness, or discharge. ENT: Positive rhinorrhea,no congestion, sore throat, positive left ear pain CARDIOVASCULAR: Denies chest pain, palpitations, or edema. RESPIRATORY: Denies cough or dyspnea. GASTROINTESTINAL: Denies abdominal pain, nausea, vomiting, or diarrhea. GENITOURINARY: Denies dysuria or hematuria. SKIN: Denies rash or itching. MUSCULOSKELETAL: Denies back pain, joint pain, or myalgia. NEUROLOGIC: Denies headache, numbness, or weakness. PSYCHIATRIC: Positive for history of anxiety or depression. All systems reviewed & are unremarkable except as noted in HPI and below PMFSH Past Medical History Medical History (Updated 05/10/21 @ 11:36 by La Nena Oconnor NP) Crohn's disease Depression Epilepsy Migraine Surgical History Surgical History History of strabismus surgery Hx of cholecystectomy Myringotomy tube(s) status Family History Family History Father Unknown family medical history Mother Alive and well Grandparent Diabetes mellitus Grandparent Cancer Social History Social History Smoking status: Never smoker Tobacco type: cigarettes Second hand tobacco smoke exposure: No Alcohol intake: never Substance use: never Gender identity (if verbalized by the patient): Female Sexual Orientation (if Verbalized by the Patient): Lesbian, James, or Homosexual Comments At time of signature, agree with nursing past medical, surgical, social and family history. There is no relevant family history pertinent to the presenting complaint Exam Narrative: GENERAL: Well-appearing, well-nourished, and in no acute distress. HEAD: Normocephalic, atraumatic. EYES: PERRLA and EOMI. ENT: Nares clear, clear rhinorrhea no epistaxis. Mucous membranes moist. left TM normal with good light reflex, red excoriated ear canal with some cerumen noted in canal, Right TM normal with good light reflex, no drainage from right ear canal NECK: Supple. no lymphadenopathy CHEST: Clear to auscultation. No respiratory distress.no cough noted SAO2 99% on room air HEART: Regular rate and rhythm. No murmur heard. Normal peripheral pulses. ABDOMEN: Soft, nontender, nondistended, normal active bowel sounds. EXTREMITIES: Normal range of motion. No edema. SKIN: Warm, dry, no rash. NEURO: No focal deficits. Alert and oriented x3. Course Vital Signs Vital signs: Vital S
== END 2021-05-10 11:40 | disposition home or self-care (01) ==
PROVIDERS: Emergency Provider Registered Nurse
DX: H60.502 Unspecified acute noninfective otitis externa, left ear (principal); K50.90 Crohn's disease, unspecified, without complications; G40.909 Epilepsy, unspecified, not intractable, without status epilepticus
CPT/HCPCS: 99213; G0463

== ENCOUNTER 2021-07-02 10:53 | Emergency (ER) | payer OTHER, SELFPAY ==
[2021-07-02] VITALS (8 sets, daily range): BP systolic 111–129; BP diastolic 59–81; PULSE 66–77; RESP 13–22; TEMP 36.4; O2SAT 100
--- NOTE | ~2021-07-02 | CT_ITS ---
EXAMINATION: CT abdomen pelvis w con INDICATION: Nausea, vomiting, TECHNIQUE: Computed tomographic images of the abdomen and pelvis were obtained after the administrati on of 100 cc of Omnipaque 350 intravenous contrast. The dose-length product (DLP) was 1601.54 mGy-cm. Automated exposure control and iterative reconstruction technique were employed. COMPARISON: 08/31/2020 FINDINGS: Minimal dependent atelectasis is present in the lung bases. The heart size is normal. The g allbladder is surgically absent. There is mild enlargement of the common bile duct and central intrah epatic ducts which is likely due to post cholecystectomy state. The liver, spleen, pancreas, and adre nal glands are normal. The kidneys are unremarkable. No pathologically enlarged abdominal or pelvic l ymph nodes are identified. There is no free intraperitoneal gas or evidence of bowel obstruction. The appendix is normal. A fat-containing umbilical hernia is noted. IMPRESSION: 1. No CT correlate for the patient's symptoms. Reviewed, dictated and finalized at location A. STICS SPECIALIST
--- NOTE | ~2021-07-02 | XR_ITS ---
EXAMINATION: XR chest 1V portable INDICATION: Cough and fever TECHNIQUE: Portable AP chest at 1150 hours COMPARISON: 06/18/2020 FINDINGS: The lungs are free of acute opacities. There is no pleural effusion or pneumothorax. The ca rdiomediastinal silhouette is normal. The visualized bones and soft tissues are unremarkable. IMPRESSION: 1. No acute cardiopulmonary abnormality. Reviewed, dictated and finalized at location A. HE OPERATOR
[2021-07-02 11:27] LABS: Basophils Percent Auto 0.5 % (0.2-1.2); Eosinophils Absolute Auto 0.2 K/mm3 (0-0.3); Eosinophils Percent Auto 2.6 % (0-4.4); Hematocrit 41.1 % (37.0-47.0); Hemoglobin 14.2 g/dL (12.0-15.0); Immature Granulocyte Absolute 0.04 K/mm3 (0.00-0.031); Immature Granulocyte Percent A 0.6 % (0-0.5); Lymphocytes Absolute Auto 1.13 K/mm3 (0.9-3.2); Lymphocytes Percent Auto 17.3 % (18.3-44.2); Mean Corpuscular HGB Conc 34.5 g/dl (32-36); Mean Corpuscular Volume 89.7 fl (80-100); Mean Platelet Volume 9.8 fl (7.4-10.4); Monocytes Absolute Auto 0.5 K/mm3 (0.1-0.6); Monocytes Percent Auto 7.1 % (2.6-8.5); Neutrophils Absolute Auto 4.7 K/mm3 (1.3-6.7); Neutrophils Percent Auto 71.9 % (45.5-73.1); Platelet Count Result 382 k/mm3 (150-375); Red Blood Count 4.58 M/mm3 (4.2-5.4); Red Cell Distribution Width 13.8 % (11.5-14.5); White Blood Count 6.5 K/mm3 (4.5-10.0)
[2021-07-02 11:35] LABS: Add Urine Microscopic? YES; Appearance Urine Cloudy (Clear); Bacteria Urine Trace /hpf; Bilirubin Urine Negative (Negative); Blood Urine 2+ (Negative); Color Urine Yellow (Yellow); Glucose Urine UA Negative (Negative); Ketones Urine Negative (Negative); Leukocyte Esterase Ur Negative LEU/UL (Negative); Mucus Urine Rare /lpf; Nitrate Urine Negative (Negative); Protein Urine Negative (Negative); RBC Urine 0-2 /hpf (0-2); Specific Grav Ur 1.014 (1.001-1.035); Squamous Epithelial Cell Urine Few /hpf (Few); Urobilinogen Urine Negative mg/dL (<2.0); WBC Urine 0-3 /hpf
--- NOTE | 2021-07-02 11:42 | ED.NAVMDI ---
HPI - Nausea/Vomiting/Diarrhea General Chief complaint: Nausea/Vomiting/Diarrhea <Danielle Hughes PA-C - Last Filed: 07/02/21 14:01> Stated complaint: neck pain, n/v, fever <RITIKA Flores Last Filed: 07/02/21 14:01> Time Seen by Provider: 07/02/21 11:15 <RITIKA Flores Last Filed: 07/02/21 14:01> Source: patient <RITIKA Flores Last Filed: 07/02/21 14:01> Mode of arrival: ambulatory <RITIKA Flores Last Filed: 07/02/21 14:01> Limitations: no limitations <RITIKA Flores Last Filed: 07/02/21 14:01> History of Present Illness HPI Narrative: This is a 31 year old female that presents to the ER for nausea, vomiting, and diarrhea ongoing over the last couple of days. Also reports fever, cough, congestion, myalgias, and sore throat. Does report she is Covid vaccinated. 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 Denies chest pain or shortness of breath. <RITIKA Flores Last Filed: 07/02/21 14:01> Related Data Home medications: Home Medications Medication Instructions Recorded Confirmed etonogestrel [Nexplanon] 1 implant SUBDERMAL ONCE 09/06/19 01/10/20 dextroamphetamine-amphetamine 06/18/20 phenytoin sodium extended 100 mg PO TID 06/18/20 [Dilantin Extended] <Danielle Hughes PA-C - Last Filed: 07/02/21 14:01> Allergies/Adverse reactions: Allergies Allergy/AdvReac Type Severity Reaction Status Date / Time latex Allergy Unknown Hives Verified 05/10/21 11:00 atomoxetine [From Strattera] Allergy Unknown Verified 05/10/21 11:00 bupropion [From Wellbutrin] Allergy Difficulty Verified 05/10/21 11:00 Breathing <RITIKA Flores Last Filed: 07/02/21 14:01> Review of Systems Review of Systems: CONSTITUTIONAL: Reports fever ENT: Reports congestion, sore throat CARDIOVASCULAR: Denies chest pain, or edema. RESPIRATORY: Reports cough. Denies dyspnea. GASTROINTESTINAL: Reports abdominal pain, nausea, vomiting, and diarrhea. GENITOURINARY: Reports dysuria MUSCULOSKELETAL: Reports myalgia. <Danielle Hughes PA-C - Last Filed: 07/02/21 14:01> All systems reviewed & are unremarkable except as noted in HPI and below <Danielle Hughes PA-C - Last Filed: 07/02/21 14:01> PMFSH Past Medical History Medical History: Medical History (Updated 07/02/21 @ 14:00 by Danielle Hughes PA-C) Crohn's disease Depression Epilepsy Migraine <Danielle Hughes PA-C - Last Filed: 07/02/21 14:01> Surgical History Surgical History: Surgical History History of strabismus surgery Hx of cholecystectomy Myringotomy tube(s) status <Danielle Hughes PA-C - Last Filed: 07/02/21 14:01> Family History Family History: Family History Father Unknown family medical history Mother Alive and well Grandparent Diabetes mellitus Grandparent Cancer <Danielle Hughes PA-C - Last Filed: 07/02/21 14:01> Social History Social History: Social History Smoking status: Never smoker Tobacco type: cigarettes Second hand tobacco smoke exposure: No Alcohol intake: never Substance use: never Gender identity (if verbalized by the patient): Female Sexual Orientation (if Verbalized by the Patient): Lesbian, James, or Homosexual <Danielle Hughes PA-C - Last Filed: 07/02/21 14:01> Exam Narrative: GENERAL: Well-appearing, well-nourished, and in no acute distress. HEAD: Normocephalic, atraumatic. EYES: PERRLA and EOMI. ENT: Nares clear, no rhinorrhea or epistaxis. Mucous membranes moist. Oropharynx without tonsillar hypertrophy exudate or other lesions. Bilateral TMs pearly vera non-bulging NECK: Supple. No adenopathy or masses. CHEST: Clear to auscultation. No respiratory distress. No wheezes rales or rhonchi HEART: Regular rate and rhythm
[2021-07-02 11:46] LABS: Alanine Aminotransferase 27 U/L (4-35); Albumin Level 4.6 g/dL (3.5-5.1); Alkaline Phosphatase 75 U/L (38-126); Anion Gap 9 mmol/L (8-16); Aspartate Amino Transferase 33 U/L (14-36); Bilirubin,Total 0.9 mg/dL (0.2-1.3); Blood Urea Nitrogen 8 mg/dL (7-17); Calcium 9.1 mg/dL (8.4-10.2); Carbon Dioxide 22 mmol/L (22-30); Chloride 106 mmol/L (98-107); Estimated CRCL calculation 161 ml/min; Estimated Glomerular Filt Rate > 60; Glucose 97 mg/dL (65-110); Lipase 120 U/L (23-300); Potassium 4.4 mmol/L (3.4-5.0); Sodium 137 mmol/L (137-145)
[2021-07-02] MEDS: ONDANSETRON INJ 4 MG/2 ML VIAL IV PUSH (12:04)
[2021-07-02] MEDS: SODIUM CHLORIDE 0.9% IV 1,000 ML 999 ML IV CONT (12:04)
[2021-07-02] MEDS: IBUPROFEN IV 400 MG in SODIUM CHLORIDE 0.9% IV 100 ML 200 MG IVPB (12:46)
[2021-07-03 17:10] LABS: SARS-CoV-2 RNA PCR Negative
== END 2021-07-02 14:40 | disposition home or self-care (01) ==
PROVIDERS: Physician Assistant; Emergency Provider Emergency Medicine
DX: B34.9 Viral infection, unspecified (principal); Z20.822 Contact with and (suspected) exposure to COVID-19; K50.90 Crohn's disease, unspecified, without complications; G40.909 Epilepsy, unspecified, not intractable, without status epilepticus; F32.A Depression, unspecified
CPT/HCPCS: 36415; 71045; 74177; 80053; 81001; 81025; 83690; 85025; 87804; 96365; 96375; 99284; C9803; J1741; J2405; J7030; Q9967; U0003; U0005

== ENCOUNTER 2021-10-10 16:03 | Emergency (ER) | payer OTHER, SELFPAY ==
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
[2021-10-10 16:05] VITALS: BP 126/75; PULSE 87; RESP 16; TEMP 37; O2SAT 100
[2021-10-10] MEDS: KETOROLAC 30 MG/ML VIAL (*BKC) IM (16:28)
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
== END 2021-10-10 17:35 | disposition home or self-care (01) ==
PROVIDERS: Emergency Provider Emergency Medicine
DX: S00.11XA Contusion of right eyelid and periocular area, initial encounter (principal); S16.1XXA Strain of muscle, fascia and tendon at neck level, initial encounter; K50.90 Crohn's disease, unspecified, without complications; G40.909 Epilepsy, unspecified, not intractable, without status epilepticus; F32.A Depression, unspecified; M47.812 Spondylosis without myelopathy or radiculopathy, cervical region; M89.9 Disorder of bone, unspecified; V43.52XA Car driver injured in collision with other type car in traffic accident, initial encounter
CPT/HCPCS: 70450; 72125; 96372; 99284; J1885

== ENCOUNTER 2021-11-27 16:31 | Emergency (ER) | payer OTHER, SELFPAY ==
[2021-11-27 16:39] VITALS: BP 121/74; PULSE 98; RESP 16; TEMP 37.6; O2SAT 100
[2021-11-27] MEDS: ONDANSETRON HCL ODT 4 MG TABLET SUBLINGUAL (16:58)
--- NOTE | 2021-11-27 17:01 | ED.URI ---
HPI - URI/Sore Throat General Chief Complaint: Upper Respiratory Infection Stated Complaint: Congestion,Throwing Up Time Seen by Provider: 11/27/21 17:01 Source: patient Mode of arrival: ambulatory Limitations: no limitations History of Present Illness HPI Narrative: 31-year-old female presents with complaint of cough, chest congestion, headaches, body aches, sore throat, nasal congestion and fever for the past 3 to 4 days. Reports that fever was as high as 103 Fahrenheit. Denies chest pain and shortness of breath. Not taking any [id number]-cwn-zndtche medications to treat her symptoms. Reports coughing so hard it causes her to vomit. All systems reviewed and negative as noted above. Related Data Home Medications Medication Instructions Recorded Confirmed etonogestrel [Nexplanon] 1 implant SUBDERMAL ONCE 09/06/19 01/10/20 dextroamphetamine-amphetamine 06/18/20 phenytoin sodium extended 100 mg PO TID 06/18/20 [Dilantin Extended] alprazolam 11/27/21 duloxetine mg PO 11/27/21 gabapentin 11/27/21 ibuprofen 11/27/21 Allergies Allergy/AdvReac Type Severity Reaction Status Date / Time latex Allergy Unknown Hives Verified 10/10/21 16:18 atomoxetine [From Strattera] Allergy Unknown Verified 10/10/21 16:18 bupropion [From Wellbutrin] Allergy Difficulty Verified 10/10/21 16:18 Breathing Review of Systems Review of Systems: CONSTITUTIONAL: Reports fever, chills, or sweats. EYES: Denies visual changes, redness, or discharge. ENT: Reports rhinorrhea, congestion, sore throat. Denies otalgia. CARDIOVASCULAR: Denies chest pain, palpitations, or edema. RESPIRATORY: Reports cough. Denies dyspnea. GASTROINTESTINAL: Denies abdominal pain, nausea, vomiting, or diarrhea. GENITOURINARY: Denies dysuria or hematuria. SKIN: Denies rash or itching. MUSCULOSKELETAL: Denies back pain, joint pain, or myalgia. NEUROLOGIC: Denies headache, numbness, or weakness. PSYCHIATRIC: Denies anxiety or depression. All other systems reviewed are negative, except as documented in HPI. [facility] Past Medical History Medical History (Updated 11/28/21 @ 00:00 by Background Daemon) Crohn's disease Depression Epilepsy Migraine Surgical History Surgical History History of strabismus surgery Hx of cholecystectomy Myringotomy tube(s) status Family History Family History Father Unknown family medical history Mother Alive and well Grandparent Diabetes mellitus Grandparent Cancer Social History Social History Smoking status: Never smoker Tobacco type: cigarettes Second hand tobacco smoke exposure: No Alcohol intake: never Substance use: never Gender identity (if verbalized by the patient): Female Sexual Orientation (if Verbalized by the Patient): Lesbian, James, or Homosexual Comments At time of signature, agree with nursing past medical, surgical, social and family history. There is no relevant family history pertinent to the presenting complaint. Exam Narrative: GENERAL: This is a well-nourished, well-developed patient, in no apparent distress. HEAD: normocephalic, atraumatic. EYES: PERRL. Sclera clear/white. Vision is grossly intact. EARS: External ears normal, auditory canals clear and without drainage, TMs normal without perforation. Hearing grossly intact. NOSE: External nose normal with clear nasal drainage, mild congestion and erythema and swelling to bilateral naris. THROAT: Mucous membranes moist, mild erythema to posterior pharynx with clear postnasal drainage.. NECK: Neck supple, non-tender without lymphadenopathy, masses or thyromegaly. CARDIOVASCULAR: Regular rate and rhythm without murmurs, gallops, or rubs. RESPIRATORY: Clear to auscultation. Breath sounds equal bilaterally. No wheezes, rales, or rhonchi. SKIN: warm, Dry, intact wit
== END 2021-11-27 17:50 | disposition home or self-care (01) ==
PROVIDERS: Emergency Provider Nurse Practitioner Family
DX: J06.9 Acute upper respiratory infection, unspecified (principal); Z20.822 Contact with and (suspected) exposure to COVID-19; K50.90 Crohn's disease, unspecified, without complications; G40.909 Epilepsy, unspecified, not intractable, without status epilepticus
CPT/HCPCS: 87426; 87804; 99213; A9270; C9803; G0463

== ENCOUNTER 2022-07-03 16:19 | Emergency (ER) | payer OTHER, SELFPAY ==
--- NOTE | ~2022-07-03 | XR_ITS ---
EXAM: XR hand RT min 3V DATE: 07/03/2022 17:17 HISTORY: slammed hand in car door/pain 3 4 MCP joints PIP joints . COMPARISON: None available. FINDINGS: Normal mineralization. Focal cortical irregularity noted along the lateral and proximal as pect of the right third proximal phalange, seen only in the frontal view. Otherwise, no definite frac ture or dislocation. No lytic or blastic lesion. Joint spaces are maintained. No erosion or periostea l change. Soft tissues within normal limits. IMPRESSION: Possible small cortical defect/avulsion fracture along the lateral proximal aspect of the right third proximal phalange. Reviewed, dictated and finalized at location K. [employer]
[2022-07-03 16:38] VITALS: BP 141/81; PULSE 76; RESP 18; TEMP 37.1; O2SAT 100
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
== END 2022-07-03 17:56 | disposition home or self-care (01) ==
PROVIDERS: Emergency Provider Nurse Practitioner Family
DX: S62.642A Nondisplaced fracture of proximal phalanx of right middle finger, initial encounter for closed fracture (principal); K50.90 Crohn's disease, unspecified, without complications; W23.1XXA Caught, crushed, jammed, or pinched between stationary objects, initial encounter
CPT/HCPCS: 29130; 73130; 99214; G0463

== ENCOUNTER 2022-11-07 17:27 | Emergency (ER) | payer OTHER, SELFPAY ==
[2022-11-07 17:33] VITALS: BP 128/76; PULSE 93; RESP 16; TEMP 37.4; O2SAT 99
--- NOTE | 2022-11-07 17:39 | ED.EYEPROB ---
HPI - Eye Problem General Chief complaint: Eye Problems Stated complaint: Left Eye Irritation Time Seen by Provider: 11/07/22 17:39 Source: patient Mode of arrival: ambulatory Limitations: no limitations History of Present Illness HPI Narrative: 32-year-old female presents with complaint of left eye pain. Patient states that she was washing dishes and dropped a clear glass cup and is concerned that glass flew into her eye. States that she washed it out really well with water. Having difficulty opening left eye due to pain. All systems reviewed and negative except as noted above. Related Data Home Medications Medication Instructions Recorded Confirmed alprazolam 0.5 mg tablet 0.5 mg BID 07/03/22 11/07/22 dextroamphetamine-amphetamine 30 30 mg BID 07/03/22 11/07/22 mg tablet duloxetine 30 mg capsule,delayed 30 mg PO DAILY 07/03/22 11/07/22 release etonogestrel 68 mg subdermal 1 implant subdermal ONCE 07/03/22 11/07/22 implant (Nexplanon) scopolamine base 1 mg over 3 days 1 patch DIRECTED 07/03/22 11/07/22 transdermal patch Allergies Allergy/AdvReac Type Severity Reaction Status Date / Time latex Allergy Unknown Hives Verified 11/07/22 17:36 atomoxetine [From Strattera] Allergy Unknown Verified 11/07/22 17:36 bupropion [From Wellbutrin] Allergy Difficulty Verified 11/07/22 17:36 Breathing Review of Systems Review of Systems: CONSTITUTIONAL: Denies fever, chills, or sweats. EYES: Denies visual changes Reports left eye redness and clear drainage. ENT: Denies rhinorrhea, congestion, sore throat, or otalgia. CARDIOVASCULAR: Denies chest pain, palpitations, or edema. RESPIRATORY: Denies cough or dyspnea. GASTROINTESTINAL: Denies abdominal pain, nausea, vomiting, or diarrhea. GENITOURINARY: Denies dysuria or hematuria. SKIN: Denies rash or itching. MUSCULOSKELETAL: Denies back pain, joint pain, or myalgia. NEUROLOGIC: Denies headache, numbness, or weakness. PSYCHIATRIC: Denies anxiety or depression. All other systems reviewed are negative, except as documented in HPI. [facility] Past Medical History Medical History (Updated 11/07/22 @ 17:49 by Ivy Jimenez NP) Crohn's disease Depression Epilepsy Migraine Surgical History Surgical History History of strabismus surgery Hx of cholecystectomy Myringotomy tube(s) status Family History Family History Father Unknown family medical history Mother Alive and well Grandparent Diabetes mellitus Grandparent Cancer Social History Social History Smoking status: Never smoker Tobacco type: cigarettes Second hand tobacco smoke exposure: No Alcohol intake: never Substance use: never Living arrangements: with family Occupation/Education: occupation Gender identity (if verbalized by the patient): Female Sexual Orientation (if Verbalized by the Patient): Lesbian, James, or Homosexual Comments At time of signature, agree with nursing past medical, surgical, social and family history. There is no relevant family history pertinent to the presenting complaint. Exam Narrative: GENERAL: This is a well-nourished, well-developed patient, in no apparent distress. HEAD: normocephalic, atraumatic. EYES: PERRL. Left eye Sclera and conjunctiva erythematous. clear drainage. Topical anesthetic was instilled with good anesthesia using 1gtt of opth anesthetic agent (tetracaine). Fluorescein stain of the L eye was performed without uptake of dye. No epithelial defect was noted. NO FB, ulcer or dendritic lesions. Upper lid was everted and no FB or lesions were noted. Normal saline irrigation eye solution was performed and the patient tolerated the procedure well, no adverse reaction or complications. EARS: External ears normal NOSE: External nose normal NECK:
== END 2022-11-07 18:00 | disposition home or self-care (01) ==
PROVIDERS: Emergency Provider Nurse Practitioner Family
DX: H57.12 Ocular pain, left eye (principal); K50.90 Crohn's disease, unspecified, without complications
CPT/HCPCS: 99213; A9270; G0463

== ENCOUNTER 2023-01-07 09:29 | Outpatient (CLI) | payer OTHER, SELFPAY ==
--- NOTE | ~2023-01-07 | MMUS_ITS ---
EXAMINATION: MM diagnostic chano LT w deepa, US breast LT limited HISTORY: Lump and pain, upper outer quadrant of left breast TECHNIQUE: Full field and spot ML, MLO and CC 3-D tomosynthesis images of the left breast were perfor med and synthetic 2-D images were generated. CAD analysis was submitted and interpreted. High resolut ion upper outer quadrant left breast ultrasound was performed. COMPARISON: None BREAST PARENCHYMAL COMPOSITION: There are scattered areas of fibroglandular density. FINDINGS: MAMMOGRAPHIC FINDINGS: No suspicious mass, architectural distortion, malignant constipation, skin thickening or retraction o f the left breast is detected. ULTRASOUND: No suspicious mass or shadowing, cyst or other sylvian sonographic abnormality is identified in the u pper outer quadrant of the left breast. In particular no abnormality is noted sonographically at 1:00 11 cm from the nipple at the area of complaint of left breast lump. IMPRESSION: 1. No mammographic or sonographic evidence of malignancy 2. Negative mammogram and ultrasound do not preclude further evaluation of any clinically suspicious palpable abnormality. BI-RADS Category 1: Negative Reviewed, dictated and finalized at location A. IMPRESSION: 1. No mammographic or sonographic evidence of malignancy 2. Negative mammogram and ultrasound do not preclude further evaluation of any clinically suspicious palpable abnormality. BI-RADS Category 1: Negative
== END 2023-01-07 09:30 | disposition home or self-care (01) ==
LOC: CHSIMG 09:32
PROVIDERS: Visit Provider Obstetrics & Gynecology
DX: N64.4 Mastodynia (principal); Z80.3 Family history of malignant neoplasm of breast; B37.2 Candidiasis of skin and nail
CPT/HCPCS: 76642; 77061; 77065; G0279

== ENCOUNTER 2023-03-22 14:06 | Outpatient (CLI) | payer OTHER, SELFPAY ==
--- NOTE | ~2023-03-22 | XR_ITS ---
EXAM: XR humerus LT DATE: 03/22/2023 14:50 HISTORY: FALL X4-5DAYS AGO,?FX . COMPARISON: None available. FINDINGS: Decreased mineralization. Breast control implant. No fracture or dislocation. No lytic or blastic lesion. Moderate AC joint hypertrophy. Moderate degenerative changes in the right elbow, incl uding several loose bodies. No erosion or periosteal change. Soft tissues within normal limits. IMPRESSION: No acute osseous finding in the left humerus. Reviewed, dictated and finalized at location K.
[2023-03-22 14:42] LABS: Basophils Absolute Auto 0.05 K/mm3 (0.00-0.10); Basophils Percent Auto 0.3 % (0.0-1.0); Eosinophils Absolute Auto 0.14 K/mm3 (0.02-0.50); Eosinophils Percent Auto 0.9 % (1.0-6.0); Hematocrit 43.1 % (35.0-49.0); Hemoglobin 13.8 g/dL (12.0-15.0); Immature Granulocyte Absolute 0.14 K/mm3 (0.00-0.00); Immature Granulocyte Percent A 0.9 % (0.0-0.0); Lymphocytes Absolute Auto 1.97 K/mm3 (1.10-4.50); Lymphocytes Percent Auto 12.9 % (18.0-42.0); Mean Corpuscular Hemoglobin 29.1 pg (27.0-31.0); Mean Corpuscular Volume 90.7 fL (78.0-102.0); Mean Platelet Volume 10.4 fl (9.2-11.8); Monocytes Absolute Auto 0.74 K/mm3 (0.10-0.90); Monocytes Percent Auto 4.8 % (2.0-11.0); Neutrophils Absolute Auto 12.2 K/mm3 (1.7-7.2); Neutrophils Percent Auto 80.2 % (50.0-70.0); Platelet Count Result 422 K/mm3 (150-420); Red Blood Count 4.75 M/mm3 (4.20-5.40); Red Cell Distribution Width 13.8 % (11.6-14.4); White Blood Count 15.3 K/mm3 (4.8-10.8)
[2023-03-22 15:11] LABS: Hemoglobin A1C 4.7 % (<5.7)
[2023-03-22 15:21] LABS: Alanine Aminotransferase 14 U/L (14-59); Albumin Level 3.9 g/dL (3.4-5.0); Alkaline Phosphatase 89 U/L (46-116); Anion Gap 15 mmol/L (8-16); Aspartate Amino Transferase 14 U/L (15-37); Bilirubin,Total 0.7 mg/dL (0.00-1.00); Blood Urea Nitrogen 14 mg/dL (7-18); Calcium 8.9 mg/dL (8.5-10.1); Carbon Dioxide 20 mmol/L (21-32); Chloride 105 mmol/L (98-108); Cholesterol 256 mg/dL (0-200); Estimated Glomerular Filt Rate > 60; Glucose 85 mg/dL (70-99); HDL Direct 54 mg/dL (40-60); LDL Cholesterol Calculated 185 mg/dL (<130); Osmolality Calculated 289 mOsm/kg (285-295); Potassium 4.4 mmol/L (3.5-5.1); Sodium 140 mmol/L (136-145); Thyroid Stimulating Hormone 1.66 uIU/mL (0.36-3.74); Total Protein 7.8 g/dL (6.4-8.2); Triglycerides 85 mg/dL (0-150)
[2023-03-26 20:38] LABS: Immunoglobulin A 419 mg/dL (47-310); TTG IGA AB <1.0 U/mL (<15.0)
== END 2023-03-22 14:07 | disposition home or self-care (01) ==
LOC: CHSIMG 14:08
PROVIDERS: PCP Nurse Practitioner Family; Visit Provider Nurse Practitioner Family
DX: R11.2 Nausea with vomiting, unspecified (principal); R13.10 Dysphagia, unspecified; S59.902A Unspecified injury of left elbow, initial encounter
CPT/HCPCS: 36415; 73060; 80053; 80061; 82784; 83036; 83516; 84443; 85025

== ENCOUNTER 2023-04-26 13:13 | Outpatient (CLI) | payer OTHER, SELFPAY ==
[2023-04-26 13:48] LABS: Occult Blood Negative (Negative)
== END 2023-04-26 13:14 | disposition home or self-care (01) ==
LOC: CHSLAB 13:14
PROVIDERS: PCP Nurse Practitioner Family; Visit Provider Nurse Practitioner Family
DX: K92.1 Melena (principal); R76.8 Other specified abnormal immunological findings in serum
CPT/HCPCS: 82272

== ENCOUNTER 2023-04-28 07:54 | Outpatient (CLI) | payer OTHER, SELFPAY | END 2023-04-28 07:55 | disposition home or self-care (01) | LOC: CHSIMG 07:55 | PROVIDERS: PCP Nurse Practitioner Family; Visit Provider Nurse Practitioner Family | DX: R13.10 Dysphagia, unspecified (principal) | CPT/HCPCS: 99199 ==

== ENCOUNTER 2023-04-28 14:06 | Outpatient (RCR) | payer OTHER, SELFPAY ==
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
--- NOTE | 2023-05-27 06:02 | OPREHPOC ---
Outpatient Therapy Plan of Care This is a Multidisciplinary Plan of Care that may contain components documented by all disciplines (PT, OT, and ST.) PT Problem 1 PT Problem #1 Knowledge Deficit PT Goal 1 Goal 1. Patient to demonstrate independence with HEP to improve progress made in PT. Target Visit 8 PT Problem 2 PT Problem #2 Impaired Strength PT Goal 1 Goal 1. Patient to improve L LE strength to 4/5 or more overall to improve ability to transfer squat to ground to fill dog bowls. Target Visit 15 PT Problem 3 PT Problem #3 Impaired Balance PT Goal 1 Goal 1. Patient to improve Tinetti balance score to 19 points or more to decrease risk of falls. 2. Patient to decrease time in 5xSTS test to no more than 42 seconds to improve transfer ability. Target Visit 15 PT Problem 4 PT Problem #4 Pain PT Goal 1 Goal 1. Patient to report lower back pain at 5/10 or less at worst to improve tolerance for performing HEP. 2. 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 Target Visit 15 PT Problem 5 PT Problem #5 Impaired Functional Mobil PT Goal 1 Goal 1. Patient to ambulate 100 feet with no buckling of the LEs to decrease risk of falling while ambulating in her home. 2. Patient to perform transfer from kneeling on floor to standing with no assistance to improve her ability to recover from falls. Target Visit 15
--- NOTE | 2023-05-27 06:03 | PTOPREEVAL ---
Assessment and note entered by JT [employer], PT Evaluation Information Assessment Status Evaluation Diagnosis wheelchair evaluation Onset 04/26/23 Subjective Information patient reports she is seeking a wheelchair. she reports she has a transport chair at home currently, but someone has to push it. she reports she does not want a motorized one, but reports she wants a manual one. she reports she reports did get a wheelchair donated to her, but the back is too high, and the seat is too narrow. she reports she tapia a tremor in the L LE, and L foot will come off the foot rest. she reports she is unable to strap the foot to the foot rest currently. she reports although she uses a cane currently, she does not feel she has enough endurance or stability with the cane to safely walk in a store. she reports she si fearful of falling mostly. she reports she has fallen in the past. she reports she has no CV issues. she does have asthma, but reports she uses an inhaler. she reports she has had a gallbladder removal. she reports she has also had tubes in her ears and a surgery to correct an eye muscle weakness. she reports she has had no neck, back, or LE surgeries . she reports she is supposed to have surgery on the cervical spine, but reports she is on hold for this at the moment. she reports she does not work . she reports she was working in a [place] in a [employer], but her mobility is too poor now to work this job. patient reports she is 5ft 7in tall and 279lbs. she reports she is open to other options for chairs, but is limited due to budget on any required devices to transport the chair with her vehicle. Reported Pain Level Pain Score 9,9,9: Self Report Assessment PT Clinical Summary mrs. mane presents to skilled PT for evaluation for WC assistive device in hopes to improve her safety and independence at home and in the community. she presents today with adequate LE strength to stand and transfer, but dues to her balance and endurance issues walking and manual wheelchair propulsion is not a viable option. she would benefit most from a power scooter to allow her greater indepence at home and in the community while her partner works. she is complicated during standing and ambulation by tremors in the L LE and fatigue that greatly inc
== END 2023-05-25 20:00 | disposition home or self-care (01) ==
LOC: CHSPT 14:06
PROVIDERS: PCP Family Medicine; Visit Provider Nurse Practitioner Family
DX: M54.12 Radiculopathy, cervical region (principal); M54.50 Low back pain, unspecified; G95.9 Disease of spinal cord, unspecified; R29.6 Repeated falls
CPT/HCPCS: 97014; 97110; 97162; 97542; G0283

== ENCOUNTER 2023-05-02 14:07 | Emergency (ER) | payer OTHER, SELFPAY ==
--- NOTE | ~2023-05-02 | CT_ITS ---
EXAMINATION: CT brain wo con DATE: 05/02/2023 14:45 INDICATION: Headache. Dizziness. TECHNIQUE: Computed tomography (CT) of the head was performed without intravenous contrast. The mA wa s adjusted according to patient size. Iterative reconstruction technique was employed. The dose-lengt h product was 605.33 mGy-cm. COMPARISON: Head CT 10/10/2021 FINDINGS: There is no intracranial hemorrhage, acute infarction, or abnormal intracranial mass lesion . The ventricles are normal in size. The paranasal sinuses are clear. The orbits are normal. The mast oid air cells are normal. IMPRESSION: 1. Normal brain. Reviewed, dictated and finalized at location A. IMPRESSION: 1. Normal brain.
[2023-05-02 14:22] VITALS: BP 147/93; PULSE 79; RESP 18; TEMP 36.6; O2SAT 97
--- NOTE | 2023-05-02 14:26 | ED.GENADULT ---
HPI - General Adult General Chief complaint: Dizziness Stated complaint: dizziness/headache Time Seen by Provider: 05/02/23 14:12 History of Present Illness HPI narrative: 33-year-old female presenting with headache. Patient states her symptoms started 2 days ago. She describes her symptoms as intense headache. She denies any other symptomatology. No reported illnesses or trauma. She states she does have a history of headaches but the headaches experiencing today is more intense than previous episodes. Related Data Home Medications Medication Instructions Recorded Confirmed alprazolam 0.5 mg tablet 0.5 mg BID 07/03/22 04/26/23 etonogestrel 68 mg subdermal 1 implant subdermal ONCE 07/03/22 04/26/23 implant (Nexplanon) scopolamine base 1 mg over 3 days 1 patch DIRECTED 07/03/22 04/26/23 transdermal patch Allergies Allergy/AdvReac Type Severity Reaction Status Date / Time latex Allergy Unknown Hives Verified 04/26/23 13:31 atomoxetine [From Strattera] Allergy Unknown Verified 04/26/23 13:31 bupropion [From Wellbutrin] Allergy Difficulty Verified 04/26/23 13:31 Breathing PMFSH Past Medical History Medical History (Updated 05/02/23 @ 15:57 by Fermín Landis, ) Crohn's disease Depression Epilepsy Migraine Surgical History Surgical History History of strabismus surgery Hx of cholecystectomy Myringotomy tube(s) status Family History Family History Father Unknown family medical history Mother Alive and well Grandparent Diabetes mellitus Grandparent Cancer Social History Social History Smoking status: Never smoker Tobacco type: cigarettes Second hand tobacco smoke exposure: No Alcohol intake: never Substance use: never Living arrangements: with family Occupation/Education: occupation Gender identity (if verbalized by the patient): Female Sexual Orientation (if Verbalized by the Patient): Lesbian, James, or Homosexual Exam Narrative: No nuchal rigidity. Neurologically intact. No obvious gross deficits. All other systems otherwise unremarkable and negative. Course Vital Signs Vital signs: Vital Signs Temperature 36.6 C 05/02/23 14:22 Pulse Rate 79 05/02/23 14:22 Respiratory Rate 18 05/02/23 14:22 Blood Pressure 147/93 H 05/02/23 14:22 Pulse Oximetry 97 05/02/23 14:22 Oxygen Delivery Room Air 05/02/23 14:22 Temperature 36.6 C 05/02/23 14:22 Pulse Rate 79 05/02/23 14:22 Respiratory Rate 18 05/02/23 14:22 Blood Pressure 147/93 H 05/02/23 14:22 Pulse Oximetry 97 05/02/23 14:22 Oxygen Delivery Room Air 05/02/23 14:22 Medical Decision Making MDM Narrative Medical decision making narrative: reassuring workup. No emergent laboratory derangements. Patient reports feeling much better following IV interventions administered emergency department. She appears well. She is nontoxic appearing. No red flag symptomatology. Most likely benign headache syndrome. Will have patient follow-up with PCP. She feels comfortable to proceed outpatient management. Vital Signs Vital Signs: Vital Signs Temperature 36.6 C 05/02/23 14:22 Pulse Rate 79 05/02/23 14:22 Respiratory Rate 18 05/02/23 14:22 Blood Pressure 147/93 H 05/02/23 14:22 Pulse Oximetry 97 05/02/23 14:22 Oxygen Delivery Room Air 05/02/23 14:22 Temperature 36.6 C 05/02/23 14:22 Pulse Rate 79 05/02/23 14:22 Respiratory Rate 18 05/02/23 14:22 Blood Pressure 147/93 H 05/02/23 14:22 Pulse Oximetry 97 05/02/23 14:22 Oxygen Delivery Room Air 05/02/23 14:22 Lab Data Lab results reviewed: Yes I reviewed the patient's lab results. 05/02/23 14:37 05/02/23 14:37 Labs: Lab Results 05/02/23 05/02/23 Range/U
[2023-05-02 14:42] LABS: Appearance Urine Clear (Clear); Basophils Absolute Auto 0.06 K/mm3 (0.00-0.10); Basophils Percent Auto 0.6 % (0.0-1.0); Bilirubin Urine Negative (Negative); Blood Urine Negative (Negative); Color Urine Light Yellow (Yellow); Eosinophils Absolute Auto 0.15 K/mm3 (0.02-0.50); Eosinophils Percent Auto 1.4 % (1.0-6.0); Glucose Urine UA Negative (Negative); Hematocrit 45.6 % (35.0-49.0); Hemoglobin 14.6 g/dL (12.0-15.0); Immature Granulocyte Absolute 0.15 K/mm3 (0.00-0.00); Immature Granulocyte Percent A 1.4 % (0.0-0.0); Ketones Urine Negative (Negative); Leukocyte Esterase Ur Negative (Negative); Lymphocytes Absolute Auto 1.77 K/mm3 (1.10-4.50); Lymphocytes Percent Auto 16.4 % (18.0-42.0); Mean Corpuscular Hemoglobin 28.7 pg (27.0-31.0); Mean Corpuscular Volume 89.6 fL (78.0-102.0); Mean Platelet Volume 9.9 fl (9.2-11.8); Monocytes Absolute Auto 0.49 K/mm3 (0.10-0.90); Monocytes Percent Auto 4.5 % (2.0-11.0); Neutrophils Absolute Auto 8.2 K/mm3 (1.7-7.2); Neutrophils Percent Auto 75.7 % (50.0-70.0); Nitrate Urine Negative (Negative); Platelet Count Result 433 K/mm3 (150-420); Protein Urine Negative (Negative); Red Blood Count 5.09 M/mm3 (4.20-5.40); Red Cell Distribution Width 13.8 % (11.6-14.4); Urobilinogen Urine 0.2 mg/dL (0.2-1.0); White Blood Count 10.8 K/mm3 (4.8-10.8)
[2023-05-02 14:43] LABS: Add Urine Microscopic? NO
[2023-05-02 14:58] LABS: Alanine Aminotransferase 26 U/L (14-59); Albumin Level 3.8 g/dL (3.4-5.0); Alkaline Phosphatase 81 U/L (46-116); Anion Gap 11 mmol/L (8-16); Aspartate Amino Transferase 15 U/L (15-37); Bilirubin,Total 0.7 mg/dL (0.00-1.00); Blood Urea Nitrogen 9 mg/dL (7-18); Calcium 9.5 mg/dL (8.5-10.1); Carbon Dioxide 23 mmol/L (21-32); Chloride 104 mmol/L (98-108); Estimated CRCL calculation 134 ml/min; Estimated Glomerular Filt Rate > 60; Glucose 88 mg/dL (70-99); Osmolality Calculated 283 mOsm/kg (285-295); Potassium 3.6 mmol/L (3.5-5.1); Sodium 138 mmol/L (136-145)
[2023-05-02] MEDS: SODIUM CHLORIDE 0.9% IV 1,000 ML 999 ML IV CONT (14:58)
[2023-05-02] MEDS: diphenhydrAMINE HCl INJ 50 MG/ML VIAL IV PUSH (15:03)
[2023-05-02] MEDS: KETOROLAC 30 MG/ML VIAL (*BKC) IV PUSH (15:04)
[2023-05-02 15:05] LABS: Lactic Acid Reflex 0.8 mmol/L (0.4-2.0)
[2023-05-02] MEDS: METOCLOPRAMIDE HCL INJ 10 MG/2 ML VIAL IV PUSH (15:05)
[2023-05-02 15:39] LABS: Pregnancy On Board Control Positive; Urine Pregnancy Test Negative
[2023-05-02 16:14] VITALS: BP 148/89; PULSE 86; RESP 16; TEMP 37; O2SAT 99
== END 2023-05-02 16:30 | disposition home or self-care (01) ==
PROVIDERS: Emergency Provider Emergency Medicine; PCP Nurse Practitioner Family
DX: G44.89 Other headache syndrome (principal); K50.90 Crohn's disease, unspecified, without complications
CPT/HCPCS: 36415; 70450; 80053; 81003; 81025; 83605; 85025; 96361; 96374; 96375; 99284; J1100; J1200; J1885; J2765; J7030

== ENCOUNTER 2023-05-07 09:43 | Outpatient (CLI) | payer OTHER, SELFPAY ==
--- NOTE | ~2023-05-07 | MR_ITS ---
EXAMINATION: MR brain IAC wo con DATE: 05/07/2023 10:36 INDICATION: Repeated falls. TECHNIQUE: Magnetic resonance imaging (MRI) of the brain, brainstem, and internal auditory canals was performed without intravenous contrast. COMPARISON: Head CT 05/02/2023 FINDINGS: There is no intracranial hemorrhage, acute infarction, or abnormal intracranial mass lesion . There are approximately 6 foci of increased T2-weighted signal intensity in the cerebral white louis er. The ventricles are normal in size. The paranasal sinuses are clear. The orbits are normal. The ma stoid air cells are normal. The internal auditory canals and inner and middle ears are normal. IMPRESSION: 1. Mild nonspecific cerebral white matter disease. The differential diagnosis includes premature teacher emotionally impaired hakeem small vessel ischemic disease (especially if the patient has cardiovascular risk factors), demyel inating disease such as multiple sclerosis, drug abuse, vasculitis, or reactive astrocytosis (gliosis ) secondary to nonspecific etiology. Reviewed, dictated and finalized at location E. IMPRESSION: 1. Mild nonspecific cerebral white matter disease. The differential diagnosis i ncludes premature chronic small vessel ischemic disease (especially if the allison ent has cardiovascular risk factors), demyelinating disease such as multiple sc lerosis, drug abuse, vasculitis, or reactive astrocytosis (gliosis) secondary t o nonspecific etiology.
== END 2023-05-07 09:44 | disposition home or self-care (01) ==
PROVIDERS: PCP Nurse Practitioner Family; Visit Provider Nurse Practitioner Family
DX: G95.9 Disease of spinal cord, unspecified (principal); M54.12 Radiculopathy, cervical region; R29.6 Repeated falls; R90.82 White matter disease, unspecified
CPT/HCPCS: 70551

== ENCOUNTER 2023-05-10 07:46 | Outpatient (CLI) | payer OTHER, SELFPAY ==
--- NOTE | ~2023-05-10 | XR_ITS ---
EXAMINATION: XR barium swallow modified DATE: 05/10/2023 09:17 INDICATION: Dysphagia.. Vomiting. TECHNIQUE: The patient was given barium-containing material of multiple consistencies to swallow by tanvir dinh speech pathologist while I performed fluoroscopy. Dose-area product was 5.182 Gy-cm2. 3.9 minutes fluoroscopy time FINDINGS: Oral Stage: Within functional limits Pharyngeal Phase: Within functional limits Cervical/Esophageal Stage: Within functional limits IMPRESSION: Modified esophagram findings as above. Please refer [facility] the speech [facility]. Reviewed, dictated and finalized at [facility]. Reviewed, dictated and finalized at [facility]. IMPRESSION: Modified esophagram findings as above. Please refer to the speech t herapy report for specific recommendations.
--- NOTE | 2023-05-10 10:01 | REHSTMBS ---
Assessment and note entered by Bren Lloyd, ACID CONDITIONER Modified Barium Swallow Evaluation Diagnosis Dysphagia R13.10 Subjective Information Patient was referred for an MBS due to concerns with swallowing. Patient reported that she has emesis 20+ times per day and is unable to swallow crunchy foods. The patient reported that Crohns' disease, Celiac disease along with removing dairy from diet have all been explored with continued emesis. Patient is scheduled to have an upper endoscopy at the end of May/beginning of June. She currently consumes primarily soft foods and protein shakes (3-4 per day). Feeding Type Recommended Oral Food Consistency Minced and Moist, Level 5 Liquid Consistency Thin (0) ST Clinical Summary Patient was referred by her primary doctor for an MBS due to difficulty with swallowing solid foods and frequent emesis 20+ times per day (past 4 years). Patient was presented with thin barium, puree/pudding mixed with barium paste, and emanuel cracker dipped in pudding/barium mixture. Patient tolerated all trials during the swallow study with no penetration or aspiration noted. Laryngeal elevation/excursion was WFL, good labial seal, good lingual lateralization, and no anterior loss of bolus was noted. Patient presented with intermittent coughing prior to and post deglutition with solid trials but there was no evidence of food/fluid in airway. Patient reported that crunchy textured foods cause her to feel the sensation to cough. She pointed at her throat when noting the difficulty. Patient currently presents with WFL oropharyngeal function for swallowing. Recommendation to follow up with primary doctor to determine next steps/testing to further explore the cause for frequent emesis. No ST is warranted at this time.
[2023-05-10 12:12] LABS: Cholesterol 231 mg/dL (0-200); HDL Direct 45 mg/dL (40-60); LDL Cholesterol Calculated 165 mg/dL (<130); Triglycerides 107 mg/dL (0-150)
== END 2023-05-10 07:47 | disposition home or self-care (01) ==
PROVIDERS: PCP Nurse Practitioner Family; Visit Provider Nurse Practitioner Family
DX: R13.10 Dysphagia, unspecified (principal); R29.6 Repeated falls; E66.01 Morbid (severe) obesity due to excess calories
CPT/HCPCS: 36415; 80061; 80307; 80346; 92611; G0480

== ENCOUNTER 2023-05-28 10:30 | Outpatient (CLI) | payer OTHER, SELFPAY ==
--- NOTE | ~2023-05-28 | MR_ITS ---
EXAMINATION: MR lumbar spine wo con DATE: 05/28/2023 11:44 INDICATION: R29.6 - Repeated falls, generalized lbp . TECHNIQUE: Magnetic resonance imaging (MRI) of the lumbar spine was performed without intravenous con trast. Sequences included sagittal T2-weighted FSE, sagittal T2-weighted FS FSE, sagittal T1-weighted FSE, and axial T2-weighted FSE. COMPARISON: None FINDINGS: The last fully formed and hydrated disc is designated L5-S1. The marrow signal is benign an d homogenous. Conus terminates at T12-L1. Multilevel loss of disc height and hydration. The following disc levels are specifically discussed: T11-T12: The disc does not extend beyond the endplate margin. There is no facet joint osteoarthritis. There is no neural foraminal stenosis. There is no central canal stenosis. T12-L1: Mild diffuse bulge with a broad-based 3 mm right paracentral protrusion. There is no facet kelechi int osteoarthritis. There is no neural foraminal stenosis. There is no central canal stenosis. L1-L2: Mild diffuse bulge with a 3 mm left paracentral protrusion. There is no facet joint osteoarthr itis. There is no neural foraminal stenosis. There is no central canal stenosis. L2-L3: The disc does not extend beyond the endplate margin. There is no facet joint osteoarthritis. T here is no neural foraminal stenosis. There is no central canal stenosis. L3-L4: Mild diffuse bulge with a 5 mm central extrusion directed 5 mm inferiorly along the posterior aspect of L4 and a posterior disc rent. There is mild bilateral facet joint osteoarthritis. There is no neural foraminal stenosis. There is no central canal stenosis. L4-L5: Mild bulge with posterior disc rent. There is mild bilateral facet joint osteoarthritis. There is mild bilateral neural foraminal stenosis. There is no central canal stenosis. L5-S1: Mild bulge. There is mild bilateral facet joint osteoarthritis. There is no neural foraminal s tenosis. There is no central canal stenosis. IMPRESSION: 5 mm central disc extrusion at L3-4. Mild degenerative disc change and disc protrusions noted at multiple additional levels, detailed abov e. Multilevel mild facet arthropathy. No severe central canal or neural foraminal narrowing. Reviewed, dictated and finalized at [facility]. IMPRESSION: 5 mm central disc extrusion at L3-4. Mild degenerative disc change and disc protrusions noted at multiple additional levels, detailed above. Multilevel mild facet arthropathy. No severe central canal or neural foraminal narrowing.
== END 2023-05-28 10:31 | disposition home or self-care (01) ==
LOC: CHSIMG 10:31
PROVIDERS: PCP Nurse Practitioner Family; Visit Provider Nurse Practitioner Family
DX: R29.6 Repeated falls (principal); R20.0 Anesthesia of skin; R20.2 Paresthesia of skin; M51.26 Other intervertebral disc displacement, lumbar region; M51.36 Other intervertebral disc degeneration, lumbar region; M12.88 Other specific arthropathies, not elsewhere classified, other specified site
CPT/HCPCS: 72148

== ENCOUNTER 2023-11-07 23:47 | Emergency (ER) | payer OTHER, SELFPAY ==
--- NOTE | ~2023-11-07 | XR_ITS ---
Left ankle Technique: AP, oblique, and lateral views were obtained. Clinical History: Pain Findings: No acute fracture or dislocation is seen. Osseous alignment is anatomic. Ankle mortise and other visualized joint spaces are preserved. Soft tissues are otherwise unremarkable. Impression: Unremarkable left ankle. Reviewed, dictated and finalized at location . Impression: Unremarkable left ankle.
--- NOTE | ~2023-11-07 | CT_ITS ---
Noncontrast CT scan of the left ankle CLINICAL HISTORY: Pain TECHNIQUE: Axial noncontrast imaging of the left ankle was performed. Sagittal and coronal reformatte d images were constructed. Dose reduction technique was used on this scan by utilizing automated expo sure control and iterative reconstruction technique. The dose-length product (DLP) was 301.36 mGy-cm. Findings: There is a probable small acute avulsion fracture from the tip of the lateral malleolus. Po ssible chronic avulsion fracture fragment at the tip of the medial malleolus. No other acute fracture seen. Osseous alignment is essentially anatomic. Ankle mortise is intact. No osteochondral lesion of the talar dome identified. Visualized joint spaces are preserved. No gross soft tissue abnormalities evident. IMPRESSION: Probable acute avulsion fracture from the tip of the lateral malleolus. Probable chronic avulsion fracture from the tip of the medial malleolus. Reviewed, dictated and finalized at [facility].
[2023-11-07 23:52] VITALS: BP 108/50; PULSE 113; RESP 24; TEMP 37.1; O2SAT 100
--- NOTE | 2023-11-08 00:53 | PC.NURSE ---
pt c/o new numbness distal to affected ankle. this RN attempted to find pedal pulse in triage bay using palpation and Doppler, no success. ED rn discharge notified of finding for room placement.
[2023-11-08 01:28] VITALS: BP 115/79; PULSE 96; RESP 18; O2SAT 99
--- NOTE | 2023-11-08 02:17 | ED.GENADULT ---
HPI - General Adult General Chief complaint: Extremity Injury, Lower Stated complaint: L ankle injury Time Seen by Provider: 11/08/23 02:07 History of Present Illness HPI narrative: Patient is a 33-year-old female who presents to the emergency department this complaining of left ankle pain. Patient states that she missed the last 3 steps while coming down the stairs and believes she may have rolled her left ankle. Patient is complaining of pain along the mid to lateral aspect of the left ankle joint, no swelling or deformity noted. Patient states that she was having difficulty putting weight on her left foot due to pain. Patient is currently resting comfortably and does not appear to be any distress. She denies hitting her head and denies loss of consciousness. Patient also denies any blood thinner use. There are no other modifying, alleviating, or precipitating factors at this time. Related Data Home Medications Medication Instructions Recorded Confirmed alprazolam 0.5 mg tablet 0.5 mg BID 07/03/22 05/11/23 etonogestrel 68 mg subdermal 1 implant subdermal ONCE 07/03/22 05/11/23 implant (Nexplanon) scopolamine base 1 mg over 3 days 1 patch DIRECTED 07/03/22 05/11/23 transdermal patch Allergies Allergy/AdvReac Type Severity Reaction Status Date / Time latex Allergy Unknown Hives Verified 11/08/23 01:29 atomoxetine [From Strattera] Allergy Unknown Verified 11/08/23 01:29 bupropion [From Wellbutrin] Allergy Difficulty Verified 11/08/23 01:29 Breathing Review of Systems Review of Systems: All systems are reviewed and are negative unless stated otherwise in the HPI. [facility] Past Medical History Medical History (Updated 11/08/23 @ 04:47 by Saima Clements MD) Crohn's disease Depression Epilepsy Migraine Surgical History Surgical History History of strabismus surgery Hx of cholecystectomy Myringotomy tube(s) status Family History Family History Father Unknown family medical history Mother Alive and well Grandparent Diabetes mellitus Grandparent Cancer Social History Social History Smoking status: Never smoker Tobacco type: cigarettes Second hand tobacco smoke exposure: No Alcohol intake: never Substance use: never Living arrangements: with family Occupation/Education: occupation Gender identity (if verbalized by the patient): Female Sexual Orientation (if Verbalized by the Patient): Lesbian, James, or Homosexual Exam Narrative: General: Alert, awake, afebrile, in no acute distress. HEENT: PERRL, no rhinorrhea, no post nasal drip, oropharynx clear. Neck: Trachea midline, no JVD, no lymphadenopathy. Cardiovascular: Regular rate and rhythm, no murmurs, rubs or gallops, no peripheral edema. Respiratory: Clear to auscultation bilaterally, no tachypnea, no wheezing, no rhonchi, no rubs, no respiratory distress. Abdomen: Soft, nontender, nondistended, no rebound, no guarding, no peritoneal signs. Musculoskeletal: No joint swelling or deformity, normal muscle tone, tenderness to palpation over the left lateral malleoli, pain with left foot plantar and dorsiflexion, intact sensation along all nerve distributions and intact DP pulse of the left foot, patient is neurovascularly intact. Skin: No rashes or petechia, no signs of infection. Psychiatric: Alert and oriented, normal behavior and judgment for situation. Neurological: Alert and oriented to person, place, and time. Follows all commands. No focal deficits, speech is clear and fluent. Course Vital Signs Vital signs: Vital Signs Temperature 98.8 F 11/07/23 23:52 Pulse Rate 113 H 11/07/23 23:52 Respiratory Rate 24 H 11/07/23 23:52 Blood Pressure 108/50 L 11/07/23 23:52 Pulse Oximetry 100 11/07/23 23:52 Oxygen Delivery Phyllis
[2023-11-08 02:25] VITALS: BP 102/78; PULSE 100; RESP 18; O2SAT 96
[2023-11-08] MEDS: KETOROLAC 30 MG/ML VIAL (*BKC) 15 MG IM (03:20)
[2023-11-08 04:53] VITALS: BP 115/78; PULSE 98; RESP 18; O2SAT 99
== END 2023-11-08 05:05 | disposition home or self-care (01) ==
PROVIDERS: Emergency Provider Emergency Medicine
DX: S93.402A Sprain of unspecified ligament of left ankle, initial encounter (principal); S82.842A Displaced bimalleolar fracture of left lower leg, initial encounter for closed fracture; K50.90 Crohn's disease, unspecified, without complications; F32.A Depression, unspecified; G40.909 Epilepsy, unspecified, not intractable, without status epilepticus; X50.0XXA Overexertion from strenuous movement or load, initial encounter
CPT/HCPCS: 73610; 73700; 96372; 99284; J1885

== ENCOUNTER 2024-03-06 19:25 | Emergency (ER) | payer OTHER, SELFPAY ==
--- NOTE | ~2024-03-06 | XR_ITS ---
EXAMINATION: XR ankle LT min 3V DATE: 03/06/2024 19:48 INDICATION: Lateral left ankle pain post fall TECHNIQUE: Anteroposterior, oblique, mortise, and lateral views of the left ankle were obtained. COMPARISON: 11/08/2023 FINDINGS: Bone alignment is normal. No fracture. Mild polyarticular osteoarthritis at the left ankle and multip le joints in the left midfoot. Small Achilles and plantar calcaneal spurs. Additional small enthesoph ytes at the medial and lateral malleoli. Small ankle joint effusion at the anterior recess. IMPRESSION: 1. Small left ankle joint effusion. No acute osseous abnormality. Reviewed, dictated and finalized at location [facility].
[2024-03-06 19:35] VITALS: BP 137/98; PULSE 101; RESP 18; TEMP 37.2; O2SAT 99
--- NOTE | 2024-03-06 19:43 | ED.LOWEXIN ---
HPI - Extremity Injury (Lower) General Chief Complaint: Extremity Injury, Lower Stated Complaint: Left Foot Pain Time Seen by Provider: 03/06/24 19:43 Source: patient, RN notes reviewed and old records reviewed Mode of arrival: ambulatory Limitations: no limitations History of Present Illness HPI Narrative: Patient complains of left ankle pain after falling down a step prior to arrival. She reports she came straight here, has not taken any Tylenol or ibuprofen. She denies other injury or trauma. She voices no other concerns or complaints at this time Related Data Home Medications Medication Instructions Recorded Confirmed alprazolam 0.5 mg tablet 0.5 mg BID 07/03/22 05/11/23 etonogestrel 68 mg subdermal 1 implant subdermal ONCE 07/03/22 05/11/23 implant (Nexplanon) scopolamine base 1 mg over 3 days 1 patch DIRECTED 07/03/22 05/11/23 transdermal patch Allergies Allergy/AdvReac Type Severity Reaction Status Date / Time latex Allergy Unknown Hives Verified 03/06/24 19:39 atomoxetine [From Strattera] Allergy Unknown Verified 03/06/24 19:39 bupropion [From Wellbutrin] Allergy Difficulty Verified 03/06/24 19:39 Breathing Review of Systems Review of Systems: All systems reviewed & are unremarkable except as noted in HPI and below Constitutional: Constitutional: Reports no additional constitutional complaints ENT: Reports system reviewed and no additional complaints, except as documented Cardiovascular: Cardiovascular: Reports no additional cardiovascular complaints Respiratory: Respiratory: Reports no additional respiratory complaints Gastrointestinal: Gastrointestinal: Reports no additional gastrointestinal complaints Musculoskeletal: Musculoskeletal: Reports as per HPI [facility] Past Medical History Medical History (Updated 03/06/24 @ 20:05 by Francine Haji APRN) Crohn's disease Depression Epilepsy Migraine Surgical History Surgical History History of strabismus surgery Hx of cholecystectomy Myringotomy tube(s) status Family History Family History Father Unknown family medical history Mother Alive and well Grandparent Diabetes mellitus Grandparent Cancer Social History Social History Smoking status: Never smoker Tobacco type: cigarettes Second hand tobacco smoke exposure: No Alcohol intake: never Substance use: never Living arrangements: with family Occupation/Education: occupation Gender identity (if verbalized by the patient): Female Sexual Orientation (if Verbalized by the Patient): Lesbian, James, or Homosexual Exam Const: General: cooperative, no acute distress, alert and awake Orientation/consciousness: oriented to person, oriented to place and oriented to time HENMT: Head: normal to inspection Resp: Effort & Inspection: normal respiratory effort and able to speak in complete sentences Auscultation: clear to auscultation bilaterally, no crackles, no rales, no rhonchi and no wheezes Cardio: Palpation: normal PMI Rate: regular rate Rhythm: regular rhythm Heart sounds: S1 normal heart sound present and S2 normal heart sound present Neuro: General: oriented to person, oriented to place and oriented to time Cranial nerves: Yes CN's II-XII intact bilaterally Extrem: Left lower extremity: full ROM, normal capillary refill and ankle Details: tenderness Location: of the lateral malleolus, swelling Details: laterally and normal ROM; no ecchymosis, no crepitus and achilles tendon exam normal Psych: Appearance: grossly normal Thought process: Normal thought process present Insight: Good insight present (Psych) Judgement: Good judgement present (Psych) Course Course Level of Care: Express Care Visit MDM - Extremity Injury (Lower) MDM Narrative Medical decision making narrat
== END 2024-03-06 20:10 | disposition home or self-care (01) ==
PROVIDERS: Emergency Provider Nurse Practitioner Family
DX: M25.572 Pain in left ankle and joints of left foot (principal); K50.90 Crohn's disease, unspecified, without complications
CPT/HCPCS: 73610; 99213; G0463

== ENCOUNTER 2025-05-05 13:33 | Emergency (ER) | payer OTHER, SELFPAY ==
--- NOTE | ~2025-05-05 | XR_ITS ---
EXAMINATION: XR wrist LT min 3V, 05/05/2025 13:44 CDT HISTORY: LT ant/radial wrist pain, fell on wrist 1 hour ago COMPARISON: No comparisons available. Findings: No acute fracture or malalignment. No significant degenerative changes. Soft tissues unremarkable. Impression: No acute fracture or malalignment. Reviewed, dictated and finalized at location P. Impression: No acute fracture or malalignment.
[2025-05-05 13:43] VITALS: BP 127/80; PULSE 100; RESP 18; TEMP 36.8; O2SAT 99
--- NOTE | 2025-05-05 13:43 | ED_ITS ---
HPI - General Adult General Chief complaint: Extremity Injury, Upper Stated complaint: Left Wrist Pain Time Seen by Provider: 05/05/25 13:44 Source: patient, RN notes reviewed and old records reviewed Mode of arrival: ambulatory Limitations: no limitations History of Present Illness HPI narrative: 35 year old female who presents to [facility] care with injury to her left wrist and fall in which she hit the back of her head. Patient reports that she was behind swinging door doing laundry and coworker swung door open hitting her causing her to fall. Patient reports that she hit the back of her head on the floor and she tried to break fall using left wrist felt a pop in wrist and which is now painful with inability to fully bend wrist, has palpable pain radial aspect of wrist. Patient reports that she had no LOC but did vomit after injury and had dizziness with some residual headache to back of head at this time. Patient reports that she did apply ice to head and her left wrist and took 2 Motrin prior to arrival . Patient is on no blood thinner reports no present dizziness. MD complaint: fell with injury to left wrist and hit head Onset (ago): hour(s) (at 1230 today) Location: head (back of head), left and upper extremity (wrist) Severity scale (1-10): 8 Quality: other (throbbing) Treatments prior to arrival: NSAID and cold therapy Related Data Home Medications ?Medication ?Instructions ?Recorded ?Confirmed ?Last Taken ?Type alprazolam 0.5 mg tablet 0.5 mg PO BID 07/03/2205/11 Unknown History etonogestrel 68 mg subdermal 1 implant subdermal ONCE 07/03/22 05/11/23 Unknown History implant (Nexplanon) atorvastatin 40 mg tablet mg 05/05/25 Unknown History cariprazine 1.5 mg capsule mg 05/05/25 Unknown Histor y (Vraylar) dextroamphetamine-amphetamine 20 05/05/25 Unknown Hi story mg tablet ergocalciferol (vitamin D2) 1,250 05/05/25 Unknown H istory mcg (50,000 unit) capsule famotidine 40 mg tablet 40 mg 05/05/25 Unknown Hist ory pantoprazole 40 mg tablet,delayed mg PO 05/05/25 Unkn own History release sertraline 25 mg tablet mg 05/05/25 Unknown History Allergies Allergy/AdvReac Type Severity Reaction Status Date / Time latex Allergy Unknown Hives Verified 05/05/25 13:47 atomoxetine (From Strattera) Allergy Unknown Verified 05/05/25 13:47 bupropion (From Wellbutrin) Allergy Difficulty Verified 05/05/25 13:47 Breathing Review of Systems Review of Systems: CONSTITUTIONAL: Denies fever, chills, or sweats. EYES: Denies visual changes, redness, or discharge. ENT: Denies rhinorrhea, congestion, sore throat, or otalgia. CARDIOVASCULAR: Denies chest pain, palpitations, or edema. RESPIRATORY: Denies cough or dyspnea. GASTROINTESTINAL: Denies abdominal pain, nausea, vomiting, or diarrhea. GENITOURINARY: Denies dysuria or hematuria. SKIN: Denies rash or itching. MUSCULOSKELETAL: Denies back pain, positive for left wrist pain from fall, or myalgia. NEUROLOGIC: reports headache,no numbness, or weakness.denies any present dizziness PSYCHIATRIC: Reports history of anxiety or depression. All systems reviewed & are unremarkable except as noted in HPI and below PMFSH Past Medical History Medical History (Updated 05/06/25 @ 10:04 by La Nena Oconnor NP) Crohn's disease Migraine Epilepsy Depression Surgical History Surgical History Hx of cholecystectomy Myringotomy tube(s) status History of strabismus surgery Family History Family History Father Unknown family medical history Mother Alive and well Grandparent Diabetes mellitus Grandparent Cancer Social History Social History Smoking status: Never smoker Tobacco type: cigarettes Second hand tobacco smoke exposure: No Alcohol intake: never Substance use: never Living arrangements: with family Occupation/Education: occupation Gender identity (if verbalized by the patient): Female Sexual Orientation (if Verbalized by the Patient): Lesbian, James, or Homosexual Comments At time of signature, agree with nursing past medical, surgical, social and family history. There is no relevant family history pertinent to the presenting complaint Exam Narrative: GENERAL: Well-appearing, well-nourished,obesity and in no acute distress. HEAD: Normocephalic, atraumatic. some tenderness to back of head with no break in skin integrity or any acute swelling EYES: PERRLA and EOMI.no nystagmus ENT: Nares clear, no rhinorrhea or epistaxis. Mucous membranes moist.TM's normal throat with no swelling or redness NECK: Supple.no lymphadenopathy CHEST: Clear to auscultation. No respiratory distress. no cough noted SAO2 99% on room air HEART: Regular rate and rhythm. No murmur heard. Normal peripheral pulses. ABDOMEN: Soft, nontender, nondistended, normal active bowel sounds. EXTREMITIES: Normal range of motion. No edema.Exception noted to pain to left wrist from injury with palpable pain to the radial aspect of her wrist no acute swelling positive for decreased mobility strong left radial pulse present SKIN: Warm, dry, no rash. NEURO: No focal deficits. Alert and oriented x3. cranial nerves II-XII intact with no deficity noted, gait is steady Course Course Emergency Course: Patient is aware of diagnosis, understands and agrees to treatment plan.? Anticipatory guidance given.? Patient agrees to follow-up as directed and is aware of reasons to seek care at the emergency department. Portions of this record may have been created with voice recognition software Level of Care: Express Care Visit Vital Signs Vital signs: Vital Signs Temperature 36.8 C 05/05/25 13:43 Pulse Rate 100 05/05/25 13:43 Respiratory Rate 18 05/05/25 13:43 Blood Pressure 127/80 05/05/25 13:43 Pulse Oximetry 99 05/05/25 13:43 Oxygen Delivery Room Air 05/05/25 13:43 Temperature 36.8 C 05/05/25 13:43 Pulse Rate 100 05/05/25 13:43 Respiratory Rate 18 05/05/25 13:43 Blood Pressure 127/80 05/05/25 13:43 Pulse Oximetry 99 05/05/25 13:43 Oxygen Delivery Room Air 05/05/25 13:43 Reviewed Medical Decision Making MDM Narrative Medical decision making narrative: Exam findings and imaging show no acute concerns or changes; patient is non- toxic appearing and is in no distress.? Patient is appropriate for outpatient treatment and follow-up Differential Diagnosis Differential Diagnosis: concussion without LOC, minor closed head injury, sprain strain left wrist, fracture left wrist, fall Medical Records Medical records reviewed: Yes I reviewed the external patient's medical records. Vital Signs Vital Signs: Vital Signs Temperature 36.8 C 05/05/25 13:43 Pulse Rate 100 05/05/25 13:43 Respiratory Rate 18 05/05/25 13:43 Blood Pressure 127/80 05/05/25 13:43 Pulse Oximetry 99 05/05/25 13:43 Oxygen Delivery Room Air 05/05/25 13:43 Temperature 36.8 C 05/05/25 13:43 Pulse Rate 100 05/05/25 13:43 Respiratory Rate 18 05/05/25 13:43 Blood Pressure 127/80 05/05/25 13:43 Pulse Oximetry 99 05/05/25 13:43 Oxygen Delivery Room Air 05/05/25 13:43 reviewed Imaging Data Attestation: I personally reviewed and interpreted this imaging study as follows: My impression: no acute fracture or malalignment Radiologist's impression: [facility] ([facility]3] [address] [place] [address] XRay Report Signed Patient: Irina Hendrickson : 1990 MR#: [id number] Age: 35 Acct:[id number] Loc: [facility] ADM Date: 05/05/25Attending Dr: Ordering Physician: La Nena Oconnor APRN Date of Service: 05/05/25 Procedure(s): XR wrist LT min 3V Accession Number(s): [id number] cc: [employer] PHYSICIAN; La Nena Oconnor APRN~ EXAMINATION: XR wrist LT min 3V, 05/05/2025 13:44 CDT HISTORY: LT ant/radial wrist pain, fell on wrist 1 hour ago COMPARISON: No comparisons available. Findings: No acute fracture or malalignment. No significant degenerative changes. Soft tissues unremarkable. Impression: No acute fracture or malalignment. Reviewed, dictated and finalized at location . Please be advised this is a medical document. It is intended for [id number] communication. It is written in medical language and may contain unfamiliar abbreviations or verbiage. Medical documents are intended to carry relevant information, facts as evident, and the clinical opinion of the practitioner at the time of the encounter. This report may have been done utilizing a voice recognition system. Attempts have been made to correct errors. However, there may be uncorrected grammatical, spelling, and recognition errors present. The file time of this note does not necessarily represent the time of service. Dictated By: Amado Motley MD 05/05/25 1403 Signed By: <Electronically signed by Amado Motley MD in OV> Critical Care Time Critical Care Time Critical Care Time: No Discharge Plan Discharge Clinical Impression: Contusion of left wrist, initial encounter Concussion without loss of consciousness Qualifiers: Encounter type: initial encounter Qualified Code(s): S06.0X0A - Concussion without loss of consciousness, initial encounter Patient Disposition: Home Condition: Stable Instructions: Antibiotic Form, Wrist Injury (ED), Concussion (ED) Additional Instructions: Elastic wrap or orthopedic splint as directed for comfort for the next 5 days Tylenol for lesser pain Ibuprofen regularly for the next 2-3 days for the inflammation 400 mg 3 times daily with food for the next 2 days Follow-up with PCP if further problems or concerns Ice to the area 20-30 minutes 4-6 times a day Elevate above heart Rest for the remainder of the day, maintain light diet: soups and liquids today If any further nausea or vomiting or any increase headache discomfort, dizziness or if any visual complaints go the ED If your symptoms persist, change or worsen significantly before you can contact your personal physician then please, without delay, go to the emergency department for further evaluation. Follow-up with PCP in 7-10 days or sooner if needed Follow up with PCP soon in regards to your blood pressure which is elevated above threshold for referral. Blood pressure above 120/80 may indicate pre- hypertension. Minimal systolic elevation Patient Language: Citizen Of [place] Prescriptions: No Action alprazolam 0.5 mg tablet 0.5 mg PO BID Nexplanon 68 mg Implant 1 implant SUBDERMAL ONCE Rx Instructions: as a single dose atorvastatin 40 mg tablet famotidine 40 mg tablet 40 mg pantoprazole 40 mg tablet,delayed release (DR/EC) PO dextroamphetamine-amphetamine 20 mg tablet sertraline 25 mg tablet Vraylar 1.5 mg capsule ergocalciferol (vitamin D2) 1,250 mcg (50,000 unit) capsule albuterol sulfate 2.5 mg /3 mL (0.083 %) solution for nebulization 2.5 mg inhalation Q6H PRN (Reason: shortness of breath or wheezing) Qty: 75 0RF albuterol sulfate 90 mcg/actuation HFA aerosol inhaler 2 inh inhalation Q6H PRN (Reason: shortness of breath or wheezing) Qty: 6.7 0RF duloxetine 60 mg capsule,delayed release(DR/EC) 60 mg PO DAILY Qty: 30 0RF Follow-up/Referrals: PHYSICIAN,[employer] [Primary Care Provider, Internal Medicine] Stand Alone Forms: Work/School Release IP Time of Disposition: 14:24 Quality Mata Coma Scale Eyes: Open Verbal: Oriented and Alert Motor: Follows Commands Mata Coma Total Score: 15
== END 2025-05-05 14:48 | disposition home or self-care (01) ==
PROVIDERS: Emergency Provider Registered Nurse
DX: S60.212A Contusion of left wrist, initial encounter (principal); S06.0X0A Concussion without loss of consciousness, initial encounter; W18.09XA Striking against other object with subsequent fall, initial encounter; Y99.0 Civilian activity done for income or pay; K50.90 Crohn's disease, unspecified, without complications; F32.A Depression, unspecified
CPT/HCPCS: 73110; 99213; G0463